=== PATIENT | male | born 1945 | race Caucasian/White ===

== ENCOUNTER 2019-09-26 01:12 | Inpatient (IN) | payer MEDICARE, OTHER ==
[2019-09-26] MEDS ORDERED: ONDANSETRON 4 MG/2 ML VIAL IVP STA (01:42)
[2019-09-26] MEDS ORDERED: SODIUM CHLORIDE 0.9% 1,000 ML IV STA (01:42)
[2019-09-26] MEDS ORDERED: PANTOPRAZOLE 40 MG/10 ML VIAL IVP STA (01:42)
[2019-09-26] MEDS ORDERED: KETOROLAC 30 MG/ML 1 ML VIAL IVP STA (01:43)
--- NOTE | 2019-09-26 01:47 | ED ---
Abdominal Pain HPI - General Source: patient, family Mode of arrival: ambulatory Limitations: no limitations <Baltazar Mai - Last Filed: 09/26/19 03:24> <Jonn Shannon - Last Filed: 10/04/19 06:44> - General Chief Complaint: Abdominal Pain Stated Complaint: Abdominal pain Time Seen by Provider: 09/26/19 01:27 - History of Present Illness Initial Comments: Patient is 73-year-old male presenting to emergency Department with a chief complaint of abdominal pain. She reports a gradual onset of right lower rustam drant abdominal pain since yesterday. States the pain is constant and comes and goes in waves. States it is dull in nature. Also reports on-and-off nausea but denies any vomiting. States she has regular bowel movements without diarrhea. Denies any night sweats fevers or chills. Denies any particular alleviating or aggravating factors. States pain is not related to by mouth intake. Does rep ort obstructive urinary symptoms but states that is due to his enlarged prostate. Denies any urgency frequency or dysuria. Denies hematuria, hematochezia or melena. Denies any testicular swelling or tenderness. (Baltazar Mai) - Related Data Allergies Allergy/AdvReac Type Severity Reaction Status Date / Time morphine Allergy Itching Verified 09/26/19 11:24 Review of Systems ROS Other: All systems not noted in ROS Statement are negative. <Baltazar Mai - Last Filed: 09/26/19 03:24> ROS Other: All systems not noted in ROS Statement are negative. <Jonn Shannon - Last Filed: 10/04/19 06:44> ROS Statement: Those systems with pertinent positive or pertinent negative responses have been documented in the HPI. Past Medical History Additional Past Medical History / Comment(s): [place] History of Any Multi-Drug Resistant Organisms: None Reported Past Surgical History: Heart Catheterization Additional Past Surgical History / Comment(s): heart cath 1992 Past Psychological History: No Psychological Hx Reported Smoking Status: Never smoker Past Alcohol Use History: Daily Past Drug Use History: None Reported <Baltazar Mai - Last Filed: 09/26/19 03:24> General Exam Limitations: no limitations General appearance: alert, in no apparent distress Head exam: Present: atraumatic, normocephalic, normal inspection Eye exam: Present: normal appearance, PERRL, EOMI Pupils: Present: normal accommodation ENT exam: Present: normal exam, normal oropharynx, mucous membranes moist, TM's normal bilaterally, normal external ear exam Neck exam: Present: normal inspection, full ROM Respiratory exam: Present: normal lung sounds bilaterally. Absent: respiratory distress, wheezes Cardiovascular Exam: Present: regular rate, normal rhythm, normal heart sounds GI/Abdominal exam: Present: soft, tenderness (Positive McBurney point tenderness. Negative Rovsing, obturator or psoas.), normal bowel sounds. Absent: distended, guarding, rebound, rigid, bruit, pulsatile mass, hernia Extremities exam: Present: normal inspection, full ROM Back exam: Present: normal inspection, full ROM Neurological exam: Present: alert, oriented X3, normal gait Psychiatric exam: Present: normal affect, normal mood Skin exam: Present: warm, dry, intact, normal color <Baltazar Mai - Last Filed: 09/26/19 03:24> Course Vital Signs 09/26/19 01:17 Temperature 99 F Pulse Rate 70 Respiratory 18 Rate Blood Pressure 162/84 O2 Sat by Pulse 96 Oximetry Medical Decision Making - Lab Data Result diagrams: 09/26/19 01:43 09/26/19 01:43 <Baltazar Mai - Last Filed: 09/26/19 03:24> - Lab Data Result diagrams: 09/30/19 06:16 09/30/19 06:16 <Jonn Shannon - Last Filed: 10/04/19 06:44> - Medical Decision Making Patient is 73-year-old male presenting to emergency Department with chief complaint of abdominal pain. Physical examination patient is appears to have positive McBurney point tenderness. Nausea but no vomiting. Symptomatic since yesterday. Patient has leukocytosis. CT of abdomen and pelvis shows right lower quadrant inflammatory changes with some fat stranding. His system with appendicitis with possible rupture. Patient given fluids, antiemetics. EKG shows normal sinus rhythm with no acute ST changes. Patient will be started on vancomycin and Zosyn. Blood cultures pending. Case discussed with . Patient will be admitted. also examined the patient and is in agreement with the treatment plan. (Baltazar Mai) I saw this patient in conjunction with the physician life enrichment assistant. I performed independent history and physical exam. Agree with case management. (Jonn Shannon) - Lab Data Lab Results 09/26/19 09/26/19 09/26/19 Range/Units 01:43 01:43 01:43 WBC 12.8 H (3.8-10.6) k/uL RBC 5.01 (4.30-5.90) m/uL Hgb 15.6 (13.0-17.5) gm/dL Hct 45.6 (39.0-53.0) % MCV 91.1 (80.0-100.0) fL MCH 31.1 (25.0-35.0) pg MCHC 34.1 (31.0-37.0) g/dL RDW 12.4 (11.5-15.5) % Plt Count 182 (150-450) k/uL Neutrophils % 87 % Lymphocytes % 5 % Monocytes % 7 % Eosinophils % 1 % Basophils % 0 % Neutrophils # 11.1 H (1.3-7.7) k/uL Lymphocytes # 0.6 L (1.0-4.8) k/uL Monocytes # 0.8 (0-1.0) k/uL Eosinophils # 0.1 (0-0.7) k/uL Basophils # 0.0 (0-0.2) k/uL PT (9.0-12.0) sec INR (<1.2) APTT (22.0-30.0) sec Sodium 131 L (137-145) mmol/L Potassium 3.8 (3.5-5.1) mmol/L Chloride 98 (98-107) mmol/L Carbon Dioxide 24 (22-30) mmol/L Anion Gap 9 mmol/L BUN 12 (9-20) mg/dL Creatinine 0.87 (0.66-1.25) mg/dL Est GFR (CKD-EPI)AfAm >90 (>60 ml/min/1.73 sqM) Est GFR (CKD-EPI)NonAf 86 (>60 ml/min/1.73 sqM) Glucose 133 H (74-99) mg/dL Plasma Lactic Acid Loki 1.1 (0.7-2.0) mmol/L Calcium 9.0 (8.4-10.2) mg/dL Total Bilirubin 1.9 H (0.2-1.3) mg/dL AST 21 (17-59) U/L ALT 19 (4-49) U/L Alkaline Phosphatase 70 (38-126) U/L Total Protein 6.7 (6.3-8.2) g/dL Albumin 4.2 (3.5-5.0) g/dL Lipase 31 (23-300) U/L Urine Color Urine Appearance (Clear) Urine pH (5.0-8.0) Ur Specific [place] (1.001-1.035) Urine Protein (Negative) Urine Glucose (UA) (Negative) Urine Ketones (Negative) Urine Blood (Negative) Urine Nitrite (Negative) Urine Bilirubin (Negative) Urine Urobilinogen (<2.0) mg/dL Ur Leukocyte Esterase (Negative) Urine RBC (0-5) /hpf Urine WBC (0-5) /hpf Hyaline Casts (0-2) /lpf Urine Mucus (None) /hpf Blood Type Blood Type Confirm Blood Type Recheck Bld Type Recheck Status Antibody Screen Spec Expiration Date 09/26/19 09/26/19 09/26/19 Range/Units 01:43 02:02 03:00 WBC (3.8-10.6) k/uL RBC (4.30-5.90) m/uL Hgb (13.0-17.5) gm/dL Hct (39.0-53.0) % MCV (80.0-100.0) fL MCH (25.0-35.0) pg MCHC (31.0-37.0) g/dL RDW (11.5-15.5) % Plt Count (150-450) k/uL Neutrophils % % Lymphocytes % % Monocytes % % Eosinophils % % Basophils % % Neutrophils # (1.3-7.7) k/uL Lymphocytes # (1.0-4.8) k/uL Monocytes # (0-1.0) k/uL Eosinophils # (0-0.7) k/uL Basophils # (0-0.2) k/uL PT 10.3 (9.0-12.0) sec INR 1.0 (<1.2) APTT 23.5 (22.0-30.0) sec Sodium (137-145) mmol/L Potassium (3.5-5.1) mmol/L Chloride (98-107) mmol/L Carbon Dioxide (22-30) mmol/L Anion Gap mmol/L BUN (9-20) mg/dL Creatinine (0.66-1.25) mg/dL Est GFR (CKD-EPI)AfAm (>60 ml/min/1.73 sqM) Est GFR (CKD-EPI)NonAf (>60 ml/min/1.73 sqM) Glucose (74-99) mg/dL Plasma Lactic Acid Loki (0.7-2.0) mmol/L Calcium (8.4-10.2) mg/dL Total Bilirubin (0.2-1.3) mg/dL AST (17-59) U/L ALT (4-49) U/L Alkaline Phosphatase (38-126) U/L Total Protein (6.3-8.2) g/dL Albumin (3.5-5.0) g/dL Lipase (23-300) U/L Urine Color Yellow Urine Appearance Clear (Clear) Urine pH 5.5 (5.0-8.0) Ur Specific [place] 1.020 (1.001-1.035) Urine Protein Negative (Negative) Urine Glucose (UA) Negative (Negative) Urine Ketones 1+ H (Negative) Urine Blood Small H (Negative) Urine Nitrite Negative (Negative) Urine Bilirubin Negative (Negative) Urine Urobilinogen <2.0 (<2.0) mg/dL Ur Leukocyte Esterase Negative (Negative) Urine RBC 8 H (0-5) /hpf Urine WBC 5 (0-5) /hpf Hyaline Casts 1 (0-2) /lpf Urine Mucus Few H (None) /hpf Blood Type A Negative Blood Type Confirm Blood Type Recheck No Previous Record Bld Type Recheck Status CABO Indicated Antibody Screen NEGATIVE Spec Expiration Date 09/29/2019 - 229909/26/19 Range/Units 03:07 WBC (3.8-10.6) k/uL RBC (4.30-5.90) m/uL Hgb (13.0-17.5) gm/dL Hct (39.0-53.0) % MCV (80.0-100.0) fL MCH (25.0-35.0) pg MCHC (31.0-37.0) g/dL RDW (11.5-15.5) % Plt Count (150-450) k/uL Neutrophils % % Lymphocytes % % Monocytes % % Eosinophils % % Basophils % % Neutrophils # (1.3-7.7) k/uL Lymphocytes # (1.0-4.8) k/uL Monocytes # (0-1.0) k/uL Eosinophils # (0-0.7) k/uL Basophils # (0-0.2) k/uL PT (9.0-12.0) sec INR (<1.2) APTT (22.0-30.0) sec Sodium (137-145) mmol/L Potassium (3.5-5.1) mmol/L Chloride (98-107) mmol/L Carbon Dioxide (22-30) mmol/L Anion Gap mmol/L BUN (9-20) mg/dL Creatinine (0.66-1.25) mg/dL Est GFR (CKD-EPI)AfAm (>60 ml/min/1.73 sqM) Est GFR (CKD-EPI)NonAf (>60 ml/min/1.73 sqM) Glucose (74-99) mg/dL Plasma Lactic Acid Loki (0.7-2.0) mmol/L Calcium (8.4-10.2) mg/dL Total Bilirubin (0.2-1.3) mg/dL AST (17-59) U/L ALT (4-49) U/L Alkaline Phosphatase (38-126) U/L Total Protein (6.3-8.2) g/dL Albumin (3.5-5.0) g/dL Lipase (23-300) U/L Urine Color Urine Appearance (Clear) Urine pH (5.0-8.0) Ur Specific [place] (1.001-1.035) Urine Protein (Negative) Urine Glucose (UA) (Negative) Urine Ketones (Negative) Urine Blood (Negative) Urine Nitrite (Negative) Urine Bilirubin (Negative) Urine Urobilinogen (<2.0) mg/dL Ur Leukocyte Esterase (Negative) Urine RBC (0-5) /hpf Urine WBC (0-5) /hpf Hyaline Casts (0-2) /lpf Urine Mucus (None) /hpf Blood Type Blood Type Confirm A Negative Blood Type Recheck Bld Type Recheck Status Antibody Screen Spec Expiration Date - EKG Data EKG Comments: Sinus rhythm, no acute ST changes. Ventricular rate 64, VT 170, QRS 96, QTC 414. (Baltazar Mai) Disposition Is patient prescribed a controlled substance at d/c from ED?: No Time of Disposition: 02:52 <Baltazar Mai - Last Filed: 09/26/19 03:24> <Jonn Shannon - Last Filed: 10/04/19 06:44> Clinical Impression: Abdominal pain, Appendicitis, acute Disposition: ADMITTED IP TO THIS HOSP Condition: Good
[2019-09-26 02:07] LABS: Basophils % (A) 0 %; Eosinophils # (A) 0.1 k/uL (0-0.7); Eosinophils % (A) 1 %; HCT 45.6 % (39.0-53.0); HGB 15.6 gm/dL (13.0-17.5); Lymphocytes # (A) 0.6 k/uL (1.0-4.8); Lymphocytes % (A) 5 %; MCH 31.1 pg (25.0-35.0); MCHC 34.1 g/dL (31.0-37.0); MCV 91.1 fL (80.0-100.0); Mean Platelet Volume 6.9; Monocytes # (A) 0.8 k/uL (0-1.0); Monocytes % (A) 7 %; Neutrophils # (A) 11.1 k/uL (1.3-7.7); Neutrophils % (A) 87 %; Platelet Count 182 k/uL (150-450); RBC 5.01 m/uL (4.30-5.90); RDW 12.4 % (11.5-15.5); WBC 12.8 k/uL (3.8-10.6)
[2019-09-26 02:08] LABS: ALT 19 U/L (4-49); AST 21 U/L (17-59); African American GFR (CKD) >90 (>60 ml/min/1.73 sqM); Albumin 4.2 g/dL (3.5-5.0); Alkaline Phosphatase 70 U/L (38-126); Anion Gap 9 mmol/L; Blood Urea Nitrogen 12 mg/dL (9-20); Carbon Dioxide 24 mmol/L (22-30); Chloride 98 mmol/L (98-107); Glucose 133 mg/dL (74-99); Non-African American GFR(CKD) 86 (>60 ml/min/1.73 sqM); Potassium 3.8 mmol/L (3.5-5.1); Sodium 131 mmol/L (137-145); Total Bilirubin 1.9 mg/dL (0.2-1.3); Total Protein 6.7 g/dL (6.3-8.2)
[2019-09-26 02:26] LABS: Appearance,Urine Clear (Clear); Bilirubin,Urine Negative (Negative); Blood,Urine Small (Negative); Color,Urine Yellow; Glucose,Urine (UA) Negative (Negative); Hyaline Casts,Urine 1 /lpf (0-2); Ketones,Urine 1+ (Negative); Leukocyte Esterase,Urine Negative (Negative); Mucus,Urine Few /hpf; Nitrite,Urine Negative (Negative); PH, Urine 5.5 (5.0-8.0); Protein,Urine Negative (Negative); RBC,Urine 8 /hpf (0-5); Urobilinogen,Urine <2.0 mg/dL (<2.0); WBC,Urine 5 /hpf (0-5)
--- NOTE | 2019-09-26 02:39 | CT ---
EXAMINATION TYPE: CT abdomen pelvis w con DATE OF EXAM: 09/26/2019 COMPARISON: None HISTORY: RLQ pain CT DLP: 1036.3 mGycm Automated exposure control for dose reduction was used. CONTRAST: Performed with IV Contrast, patient injected with 100 mL of Isovue 300. Lung bases are clear. There is no pleural effusion. There is no pericardial effusion. Heart size is n ormal. Liver spleen stomach pancreas gallbladder appear normal. Bile ducts are not dilated. There is no adrenal mass. Kidneys show satisfactory contrast opacification. There is no hydronephrosi s. Delayed images show normal renal excretion. Bladder distends smoothly. There is no inguinal hernia . There is no free fluid in the pelvis. There are multiple sigmoid diverticula. There is fat stranding in the right lower quadrant with apparent markedly thickened appendix with arturo rounding fluid. Appendix measures up to 1.7 cm. There is no evidence of free air. There is probably small appendicolith. Lumbar vertebra have normal alignment. Disc spaces are fairly normal. There is no compression fractur e. Bony pelvis is intact. There is a mild relative spinal stenosis at L3-4. There is no evidence of a bowel obstruction. IMPRESSION: Inflammatory changes in the right lower quadrant with fat stranding and fluid and markedly thickened appendix consistent with appendicitis and possible rupture.
[2019-09-26] MEDS ORDERED: PIPERACILLIN-TAZOBACTAM 3.375 GM in SODIUM CHLORIDE 0.9% 100 ML IVPB STA (02:42)
[2019-09-26] MEDS ORDERED: VANCOMYCIN IV PER PHARMACY 1 EACH MISC MISCELLANE PRN (02:42)
[2019-09-26] MEDS ORDERED: VANCOMYCIN 1,500 MG in SODIUM CHLORIDE 0.9% 250 ML IVPB STA (02:47)
[2019-09-26] MEDS ORDERED: HYDROmorphone 0.5 MG/0.5 ML SYRINGE IVP STA (02:57)
[2019-09-26 03:17] LABS: Partial Thromboplastin Time 23.5 sec (22.0-30.0); Prothrombin Time 10.3 sec (9.0-12.0)
[2019-09-26] MEDS ORDERED: ACETAMINOPHEN TAB 325 MG TAB PO PRN (03:20)
[2019-09-26] MEDS ORDERED: NALOXONE 0.4 MG/ML 1 ML VIAL IV PRN ×2 (03:20→08:44)
[2019-09-26] MEDS: SODIUM CHLORIDE 0.9% 1,000 ML IV SCH ×2 (03:49→16:54)
[2019-09-26] MEDS ORDERED: SODIUM CHLORIDE 0.9% 1,000 ML IV ONE (07:32)
[2019-09-26] MEDS ORDERED: HEPARIN SODIUM,PORCINE 5,000 UNIT/ML 1 ML VIAL SQ ONE (07:44)
[2019-09-26] MEDS ORDERED: fentaNYL (PF) 50 MCG/ML 2 ML AMP ONE (07:45)
[2019-09-26] MEDS ORDERED: NEOSTIGMINE 1 MG/ML 10 ML VIAL ONE (07:45)
[2019-09-26] MEDS ORDERED: SUCCINYLCHOLINE CHLORIDE 100 MG/5 ML SYR IV ONE (07:45)
[2019-09-26] MEDS ORDERED: PROPOFOL 10 MG/ML 20 ML VIAL IV ONE (07:45)
[2019-09-26] MEDS ORDERED: MIDAZOLAM 2 MG/2 ML VIAL ONE (07:45)
[2019-09-26] MEDS ORDERED: ePHEDrine SULFATE/0.9% NACL/PF 50 MG/5 ML SYRINGE IV ONE (07:45)
[2019-09-26] MEDS ORDERED: LIDOCAINE 1% INJ 10MG/ML (20 ML MDV) ONE (07:45)
[2019-09-26] MEDS ORDERED: ROCURONIUM BROMIDE 10 MG/ML 5 ML VIAL IV ONE (07:45)
[2019-09-26] MEDS ORDERED: GLYCOPYRROLATE 0.2 MG/ML 2 ML VIAL ONE (07:45)
[2019-09-26] MEDS ORDERED: BUPIVACAIN-EPI 0.25%-1:200,000 30 ML VIAL SQ ONE (07:50)
--- NOTE | 2019-09-26 08:43 | P.OP ---
Date of Procedure: 09/26/19 Preoperative Diagnosis: Acute appendicitis Postoperative Diagnosis: Acute appendicitis with necrosis Procedure(s) Performed: Laparoscopic appendectomy Anesthesia: YOLANDA Surgeon: Ken Holbrook Estimated Blood Loss (ml): 5 Pathology: other (Appendix) Condition: stable Disposition: PACU Description of Procedure: The patient's placed on the operating table in the supine position. The patient received general anesthesia. The abdomen was prepped and draped in the usual sterile fashion. The skin was anesthetized 1% local Xylocaine at the trocar sites. Using an 11 blade the skin was incised at the umbilicus. The umbilicus was grasped with a [place] clamp and then a Veress needle was placed into the peritoneal cavity. Position of the Veress needle was confirmed with positive drop test. After adequate insufflation a 5 mm trocar was placed into the peritoneal cavity. The abdomen was further insufflated. And then the laparoscope was placed in the peritoneal cavity. Next a 5 mm trocar was placed in the midline suprapubic position. And then a 10 mm trocar was placed in the midline epigastric position. The patient was rotated with the right side up and in Trendelenburg. The appendix was visualized. The appendix appeared to be inflamed. There was evidence of necrosis of the appendix. The appendix was grasped and then using the Harmonic scissors the mesoappendix was divided. A PDS Endoloop was then placed around the base of the appendix. And then the appendix was divided using Harmonic scissors. The appendix was placed into an Endo Catch and brought out through the 10 mm trocar site. The abdomen was irrigated. There is no bleeding seen. The trochars withdrawn. The skin was closed interrupted 3-0 Monocryl suture. Dermabond dressing was applied. Patient was sent to recovery room in stable condition.
--- NOTE | 2019-09-26 08:44 | P.GSHP ---
History of Present Illness H&P Date: 09/26/19 Chief Complaint: Right lower quadrant pain This is a 73-year-old male who has a four-day history of right lower quadrant pain. Patient admitted through the emergency room found have evidence of appendicitis. Past Medical History Past Medical History: Hyperlipidemia, Hypertension, Myocardial Infarction ([place]), Osteoarthritis (OA), Prostate Disorder Additional Past Medical History / Comment(s): [place] Last Myocardial Infarction Date:: History of Any Multi-Drug Resistant Organisms: None Reported Past Surgical History: Adenoidectomy, Heart Catheterization, Orthopedic Surgery, Tonsillectomy Additional Past Surgical History / Comment(s): heart cath 1991; carpal tunnel surgery; vasectomy Past Anesthesia/Blood Transfusion Reactions: No Reported Reaction Past Psychological History: No Psychological Hx Reported Smoking Status: Never smoker Past Alcohol Use History: Daily Past Drug Use History: None Reported Medications and Allergies Home Medications Medication Instructions Recorded Confirmed Type Losartan [Cozaar] 25 mg PO DAILY 09/26/19 09/26/19 History Allergies Allergy/AdvReac Type Severity Reaction Status Date / Time morphine Allergy Itching Verified 09/26/19 01:25 Surgical - Exam Vital Signs Temp Pulse Resp BP Pulse Ox 99 F 70 18 162/84 96 09/26/19 01:17 09/26/19 01:17 09/26/19 01:17 09/26/19 01:17 09/26/19 01:17 - General well developed, well nourished, moderate distress - Eyes PERRL - ENT normal pinna - Neck no masses - Respiratory normal expansion - Cardiovascular Rhythm: regular - Abdomen Right lower quadrant pain Abdomen: soft Results - Labs 09/26/19 01:43 09/26/19 01:43 Abnormal Lab Results - Last 24 Hours (Table) 09/26/19 09/26/19 09/26/19 Range/Units 01:43 01:43 02:02 WBC 12.8 H (3.8-10.6) k/uL Neutrophils # 11.1 H (1.3-7.7) k/uL Lymphocytes # 0.6 L (1.0-4.8) k/uL Sodium 131 L (137-145) mmol/L Glucose 133 H (74-99) mg/dL Total Bilirubin 1.9 H (0.2-1.3) mg/dL Urine Ketones 1+ H (Negative) Urine Blood Small H (Negative) Urine RBC 8 H (0-5) /hpf Urine Mucus Few H (None) /hpf Diabetes panel 09/26/19 Range/Units 01:43 Sodium 131 L (137-145) mmol/L Potassium 3.8 (3.5-5.1) mmol/L Chloride 98 (98-107) mmol/L Carbon Dioxide 24 (22-30) mmol/L BUN 12 (9-20) mg/dL Creatinine 0.87 (0.66-1.25) mg/dL Glucose 133 H (74-99) mg/dL Calcium 9.0 (8.4-10.2) mg/dL AST 21 (17-59) U/L ALT 19 (4-49) U/L Alkaline Phosphatase 70 (38-126) U/L Total Protein 6.7 (6.3-8.2) g/dL Albumin 4.2 (3.5-5.0) g/dL Calcium panel 09/26/19 Range/Units 01:43 Calcium 9.0 (8.4-10.2) mg/dL Albumin 4.2 (3.5-5.0) g/dL Pituitary panel 09/26/19 Range/Units 01:43 Sodium 131 L (137-145) mmol/L Potassium 3.8 (3.5-5.1) mmol/L Chloride 98 (98-107) mmol/L Carbon Dioxide 24 (22-30) mmol/L BUN 12 (9-20) mg/dL Creatinine 0.87 (0.66-1.25) mg/dL Glucose 133 H (74-99) mg/dL Calcium 9.0 (8.4-10.2) mg/dL Adrenal panel 09/26/19 Range/Units 01:43 Sodium 131 L (137-145) mmol/L Potassium 3.8 (3.5-5.1) mmol/L Chloride 98 (98-107) mmol/L Carbon Dioxide 24 (22-30) mmol/L BUN 12 (9-20) mg/dL Creatinine 0.87 (0.66-1.25) mg/dL Glucose 133 H (74-99) mg/dL Calcium 9.0 (8.4-10.2) mg/dL Total Bilirubin 1.9 H (0.2-1.3) mg/dL AST 21 (17-59) U/L ALT 19 (4-49) U/L Alkaline Phosphatase 70 (38-126) U/L Total Protein 6.7 (6.3-8.2) g/dL Albumin 4.2 (3.5-5.0) g/dL Assessment and Plan Assessment: Acute appendicitis. Patient undergo laparoscopic appendectomy
[2019-09-26] MEDS ORDERED: LACTATED RINGERS 1,000 ML IV ONE (09:01)
[2019-09-26] MEDS: HYDROcodone/APAP 5-325MG 1 EACH TAB PO PRN (09:41)
--- NOTE | 2019-09-26 11:44 | P.CONS ---
History of Present Illness - History of Present Illness Patient is a pleasant 73-year-old gentleman came in with compensative severe r ight lower quadrant abdominal pain along with nausea vomiting which started couple days ago nighttime much worse yesterday because of which patient came to ER found to have appendicitis underwent surgery found to have ruptured appendix with peritonitis. Patient had a fever last night patient was started on broad- spectrum antibiotics vancomycin and Zosyn and infectious disease was consulted patient is receiving IV fluids patient pain significant improved today patient is feeling much better today patient had multiple episodes of nausea vomiting. Review of Systems REVIEW OF SYSTEMS: CONSTITUTIONAL: no malaise, no fatigue. HEENT: No recent visual problems or hearing problems. Denied any sore throat. CARDIOVASCULAR: No chest pain, orthopnea, PND, no palpitations, no syncope. PULMONARY: No shortness of breath, no cough, no hemoptysis. GASTROINTESTINAL: As mentioned in HPI NEUROLOGICAL: No headaches, no weakness, no numbness. HEMATOLOGICAL: Denies any bleeding or petechiae. GENITOURINARY: Denies any burning micturition, frequency, or urgency. MUSCULOSKELETAL/RHEUMATOLOGICAL: Denies any joint pain, swelling, or any muscle pain. ENDOCRINE: Denies any polyuria or polydipsia. The rest of the 14-point review of systems is negative. Past Medical History Past Medical History: Hyperlipidemia, Hypertension, Myocardial Infarction ([place]), Osteoarthritis ([place]), Prostate Disorder Additional Past Medical History / Comment(s): [place] Last Myocardial Infarction Date:: History of Any Multi-Drug Resistant Organisms: None Reported Past Surgical History: Adenoidectomy, Heart Catheterization, Orthopedic Surgery, Tonsillectomy Additional Past Surgical History / Comment(s): heart cath 1991; carpal tunnel surgery; vasectomy Past Anesthesia/Blood Transfusion Reactions: No Reported Reaction Past Psychological History: No Psychological Hx Reported Smoking Status: Never smoker Past Alcohol Use History: Daily Past Drug Use History: None Reported Medications and Allergies Home Medications Medication Instructions Recorded Confirmed Type Aspirin EC [Ecotrin Low Dose] 81 mg PO DAILY 09/26/19 09/26/19 History Calcium Carbonate [Calcium] 600 mg PO Q48H 09/26/19 09/26/19 History Losartan [Cozaar] 25 mg PO DAILY 09/26/19 09/26/19 History Magnesium 200 mg PO Q48H 09/26/19 09/26/19 History [place]-3 Fatty Acids/Fish Oil [Fish 1 cap PO DAILY 09/26/19 09/26/19 History Oil 1,000 mg Softgel] Potassium Gluconate 99 mg PO Q48H 09/26/19 09/26/19 History Serrapeptase 1 tab PO DAILY 09/26/19 09/26/19 History Ubidecarenone [Co Q-10] 100 mg PO DAILY 09/26/19 09/26/19 History Vitamin E 400 unit PO DAILY 09/26/19 09/26/19 History Zinc 50 mg PO DAILY PRN 09/26/19 09/26/19 History Allergies Allergy/AdvReac Type Severity Reaction Status Date / Time morphine Allergy Itching Verified 09/26/19 11:24 Physical Exam Vitals: Vital Signs Temp Pulse Pulse Pulse Pulse Resp BP 09/26/19 10:20 84 09/26/19 10:05 85 09/26/19 09:50 85 09/26/19 09:35 100.0 F H 79 17 09/26/19 09:13 79 16 09/26/19 08:57 85 16 09/26/19 08:42 99.2 F 95 16 09/26/19 07:39 99.8 F H 87 16 09/26/19 05:32 99.1 F 65 18 09/26/19 01:17 99 F 70 18 162/84 BP Pulse Ox 09/26/19 10:20 115/65 09/26/19 10:05 106/68 09/26/19 09:50 113/61 09/26/19 09:35 112/65 95 09/26/19 09:13 126/67 97 09/26/19 08:57 143/71 100 09/26/19 08:42 142/68 99 09/26/19 07:39 139/66 95 09/26/19 05:32 146/75 98 09/26/19 01:17 96 Intake and Output 09/25/19 09/26/19 09/26/19 22:59 06:59 14:59 Intake Total 325 1000 Output Total 5 Balance 325 995 Intake: IV 1000 Intake, IV Titration 325 Amount Sodium Chloride 0.9% 1, 75 000 ml @ 75 mls/hr IV . [id number] [facility] Rx#:[id number] Vancomycin 1,500 mg In 250 Sodium Chloride 0.9% 250 ml @ 125 mls/hr IVPB Q12H [facility] Rx#:[id number] Output: Estimated Blood Loss 5 Other: Voiding Method Toilet Weight 88.5 kg PHYSICAL EXAMINATION: GENERAL: The patient is alert and oriented x3, not in any acute distress. Well developed, well nourished. HEENT: Pupils are round and equally reacting to light. EOMI. No scleral icterus. No conjunctival pallor. Normocephalic, atraumatic. No pharyngeal erythema. No thyromegaly. CARDIOVASCULAR: S1 and S2 present. No murmurs, rubs, or gallops. PULMONARY: Chest is clear to auscultation, no wheezing or crackles. ABDOMEN: Soft, minimal tenderness in the surgical site area surgical site area appears to be clean bowel sounds are fairly good MUSCULOSKELETAL: No joint swelling or deformity. EXTREMITIES: No cyanosis, clubbing, or pedal edema. NEUROLOGICAL: Gross neurological examination did not reveal any focal deficits. SKIN: No rashes. Results CBC & Chem 7: 09/26/19 01:43 09/26/19 01:43 Labs: Abnormal Lab Results - Last 24 Hours (Table) 09/26/19 09/26/19 09/26/19 Range/Units 01:43 01:43 02:02 WBC 12.8 H (3.8-10.6) k/uL Neutrophils # 11.1 H (1.3-7.7) k/uL Lymphocytes # 0.6 L (1.0-4.8) k/uL Sodium 131 L (137-145) mmol/L Glucose 133 H (74-99) mg/dL Total Bilirubin 1.9 H (0.2-1.3) mg/dL Urine Ketones 1+ H (Negative) Urine Blood Small H (Negative) Urine RBC 8 H (0-5) /hpf Urine Mucus Few H (None) /hpf Assessment and Plan Plan: -Acute appendicitis, status post surgery patient had ruptured appendix leading to peritonitis patient is on broad-spectrum antibiotics which will be continued -Sepsis secondary to appendicitis -Hypervolemic hyponatremia expected to improve with IV normal saline which will be continued will increase normal saline 100 mL/h -Hyperlipidemia -Hypertension -Coronary artery disease -Benign prostatic hypertrophy For above-mentioned chronic medical problems patient will be resumed on appropriate home medications
[2019-09-26] MEDS: HYDROmorphone 0.5 MG/0.5 ML SYRINGE IVP PRN ×4 (12:56→23:05)
[2019-09-26] MEDS: AMPICILLIN-SULBACTAM 3 GM in SODIUM CHLORIDE 0.9% 100 ML IVPB SCH ×3 (12:57→23:06)
[2019-09-26] MEDS ORDERED: VANCOMYCIN 1,500 MG in SODIUM CHLORIDE 0.9% 250 ML IVPB SCH (16:00)
[2019-09-27] MEDS: HYDROcodone/APAP 5-325MG 1 EACH TAB PO PRN ×2 (02:53→08:52)
[2019-09-27] MEDS: AMPICILLIN-SULBACTAM 3 GM in SODIUM CHLORIDE 0.9% 100 ML IVPB SCH ×3 (05:56→20:34)
--- NOTE | 2019-09-27 06:51 | CONS ---
CONSULTATION DATE OF SERVICE: 09/26/2019 REASON FOR CONSULTATION: Gangrenous appendicitis. HISTORY OF PRESENT ILLNESS: The patient is a 73-year-old male who presented to the ER early this morning after midnight with a chief complaint of abdominal pain. The patient mentioned his abdominal pain has been going on since Wednesday, however, over the 24 hours the pain was getting more worse and has been constant. The patient describes the pain to be in the right lower quadrant area and is currently sharp at times and dull aching about 5 to 6/10 and no radiation. The patient has felt nauseated, but no vomiting and denies having any diarrhea. With these symptoms, the patient was evaluated by the ER physician. On arrival to the ER, the patient was afebrile. Subsequently did spike a fever of 100 degrees Fahrenheit. The patient did have elevated white count of 12.8. UA was negative. The patient did have a CT of abdomen and pelvis that has been suggestive of inflammatory changes in the right lower quadrant with fat stranding markedly thickened appendix consistent with appendicitis with possible rupture. The patient was taken to the OR early this morning by Surgery. The patient is status post laparoscopic appendectomy with evidence of acute appendicitis with necrosis. The patient did receive a dose of Zosyn in the ER and that was continued with vancomycin. Infectious Disease was consulted for further recommendations regarding antibiotic therapy. REVIEW OF SYSTEMS: Positive points have been mentioned in HPI. Rest of systems are negative. PAST MEDICAL HISTORY: Hypertension, hyperlipidemia, ND, osteoarthritis, prostate disorder. PAST SURGICAL HISTORY: Adenoidectomy, heart catheterization, tonsillectomy, carpal tunnel release, vasectomy. SOCIAL HISTORY: The patient smokes . Denies drinking or drug use. FAMILY HISTORY: No pertinent findings noticed. ALLERGIES: MORPHINE. MEDICATIONS: Medications include the patient is currently on Tylenol, [place], Lovenox, Dilaudid, Narcan, and vancomycin and Zosyn doses in the ER. PHYSICAL EXAMINATION: On examination, blood pressure 103/63 with a pulse of 72, temperature 98.2. He is 96% on room air. General description is an elderly male lying in bed in no distress. No tachypnea or accessory muscle of respiration use. HEENT: Examination shows no pallor or scleral icterus. Oral mucous membrane is dry. No pharyngeal erythema or thrush. NECK: Trachea central. No thyromegaly. LUNGS: Unlabored breathing, clear to auscultation anteriorly. HEART: S1, S2. Regular rate and rhythm. ABDOMEN: Soft, mildly tender. No guarding or rigidity. EXTREMITIES: No edema of the feet. LABS: Hemoglobin is 15.6, white count of 12.8, BUN of 12, creatinine 0.87. CT report mentioned above. DIAGNOSTIC IMPRESSION AND PLAN: Patient admitted to the hospital with sepsis in this patient did have a fever of 100 degrees Fahrenheit. The patient did have an elevated white count source is acute gangrenous appendicitis, status post laparoscopic appendectomy. Will need to cover for enteric gram-negative both aerobes and anaerobes in this patient who had no recent history of any antibiotic exposure will be a sensitive pathogen. PLAN: 1. Discontinue the vancomycin. 2. Unasyn 3 grams q.6 hours. 3. We will follow on clinical condition and culture to further adjust medication if needed. Thank you for this consultation. Will follow this patient along with you. MMODL / IJN: [id number] /
[2019-09-27 07:47] LABS: Basophils % (A) 0 %; Eosinophils % (A) 0 %; HCT 33.4 % (39.0-53.0); Lymphocytes # (A) 0.9 k/uL (1.0-4.8); Lymphocytes % (A) 9 %; MCH 31.5 pg (25.0-35.0); MCHC 34.4 g/dL (31.0-37.0); MCV 91.8 fL (80.0-100.0); Mean Platelet Volume 7.2; Monocytes # (A) 0.5 k/uL (0-1.0); Monocytes % (A) 5 %; Neutrophils % (A) 84 %; Platelet Count 165 k/uL (150-450); RBC 3.63 m/uL (4.30-5.90); RDW 12.6 % (11.5-15.5); WBC 9.4 k/uL (3.8-10.6)
[2019-09-27 07:53] LABS: Albumin 2.6 g/dL (3.5-5.0); Calcium 7.5 mg/dL (8.4-10.2); Potassium 3.5 mmol/L (3.5-5.1); Total Bilirubin 1.8 mg/dL (0.2-1.3); Total Protein 4.9 g/dL (6.3-8.2)
[2019-09-27 07:54] LABS: HGB 11.5 gm/dL (13.0-17.5)
[2019-09-27] MEDS: ENOXAPARIN 40 MG/0.4 ML SYRINGE SQ SCH (08:52)
[2019-09-27] MEDS ORDERED: BISACODYL 5 MG TABLET.DR PO STA (09:44)
--- NOTE | 2019-09-27 12:21 | P.PN ---
Subjective 73-year-old pleasant male was admitted for ruptured appendix patient is status post laparotomy patient is presently on Unasyn rest of antibiotics were discontinued infectious disease is following the patient patient has significant drainage from the surgical drain. Patient did not pass gas yet that patient did not move his bowels yet patient is complaining of pain in the surgical site area. Constitutional: Denied any fatigue denied any fever. Cardio vascular: denied any chest pain, palpitations Gastrointestinal denied any nausea vomiting Pulmonary: Denied any shortness of breath cough Neurologic denied any new focal deficits All inpatient medications were reviewed and appropriate changes in these medications as dictated in the interval history and assessment and plan. Objective - Vital Signs Vital signs: Vital Signs Temp 99 F 09/27/19 11:45 Pulse 76 09/27/19 11:45 Resp 17 09/27/19 11:45 BP 118/68 09/27/19 11:45 Pulse Ox 95 09/27/19 11:45 Intake & Output 09/26/19 09/27/19 09/27/19 18:59 06:59 18:59 Intake Total 2050 400 120 Output Total 205 500 Balance 1845 400 -380 Intake: IV 1000 Intake, IV Titration 1050 400 Amount Ampicillin-Sulbactam 3 gm 100 In Sodium Chloride 0.9% 100 ml @ 200 mls/hr IVPB Q6HR [facility] Rx#:[id number] Sodium Chloride 0.9% 1, 800 300 000 ml @ 100 mls/hr IV . Q10H [facility] Rx#:[id number] Vancomycin 1,500 mg In 250 Sodium Chloride 0.9% 250 ml @ 125 mls/hr IVPB Q12H [facility] Rx#:[id number] Oral 120 Output: Drainage 200 180 Abdomen 200 180 Estimated Blood Loss 5 Other 320 Other: Voiding Method Toilet Toilet # Voids 1 - Exam PHYSICAL EXAMINATION: GENERAL: The patient is alert and oriented x3, not in any acute distress. Well developed, well nourished. HEENT: Pupils are round and equally reacting to light. EOMI. No scleral icterus. No conjunctival pallor. Normocephalic, atraumatic. No pharyngeal erythema. No thyromegaly. CARDIOVASCULAR: S1 and S2 present. No murmurs, rubs, or gallops. PULMONARY: Chest is clear to auscultation, no wheezing or crackles. ABDOMEN: Soft, minimal tenderness in the surgical site area surgical site area appears to be clean bowel sounds are fairly good, sluggish bowel sounds to be drained with significant drainage which is bloody MUSCULOSKELETAL: No joint swelling or deformity. EXTREMITIES: No cyanosis, clubbing, or pedal edema. NEUROLOGICAL: Gross neurological examination did not reveal any focal deficits. SKIN: No rashes. - Labs CBC & Chem 7: 09/27/19 06:03 09/27/19 06:03 Labs: Abnormal Lab Results - Last 24 Hours (Table) 09/27/19 09/27/19 Range/Units 06:03 06:03 RBC 3.63 L (4.30-5.90) m/uL Hgb 11.5 L D (13.0-17.5) gm/dL Hct 33.4 L (39.0-53.0) % Neutrophils # 8.0 H (1.3-7.7) k/uL Lymphocytes # 0.9 L (1.0-4.8) k/uL Sodium 127 L (137-145) mmol/L Chloride 97 L (98-107) mmol/L Calcium 7.5 L (8.4-10.2) mg/dL Total Bilirubin 1.8 H (0.2-1.3) mg/dL ALT 56 H (4-49) U/L Total Protein 4.9 L (6.3-8.2) g/dL Albumin 2.6 L (3.5-5.0) g/dL Microbiology - Last 24 Hours (Table) 09/26/19 03:07 Blood Culture - Preliminary Blood No Growth after 24 hours Assessment and Plan Plan: -Acute appendicitis, status post surgery patient had ruptured appendix leading to peritonitis patient is on Unasyn which will be continued, patient has a ISAI drain continues to have significant drainage. -Hyponatremia possibly hypovolemic hyponatremia Will repeat basic metabolic profile patient will remain in normal saline if her serum sodium doesn't improve then we will do further workup for hyponatremia at the time -Sepsis secondary to appendicitis -Hyperlipidemia -Hypertension -Coronary artery disease -Benign prostatic hypertrophy For above-mentioned chronic medical problems patient will be resumed on appropriate home medications
[2019-09-27 12:22] LABS: HCT 36.7 % (39.0-53.0); HGB 12.5 gm/dL (13.0-17.5); MCH 31.5 pg (25.0-35.0); MCHC 34.1 g/dL (31.0-37.0); MCV 92.2 fL (80.0-100.0); Platelet Count 208 k/uL (150-450); RBC 3.98 m/uL (4.30-5.90); RDW 12.7 % (11.5-15.5); WBC 11.3 k/uL (3.8-10.6)
--- NOTE | 2019-09-27 13:37 | P.PN ---
Subjective Patient is seen and examined sitting up in his chair in no acute distress. He is complaining of mild abdominal discomfort and constipation. Laboratory data reviewed, WBC 9.4, hemoglobin 11.5, sodium 127, potassium 3.5, total bilirubin 1.8, AST 49 and ALT 56. Currently maintained on Unasyn per infectious disease. 610 ml sanguinous fluid removed from ISAI drain in the previous 24 hours. GENERAL: No acute distress. Blood pressure 104/60 heart rate 74 afebrile maintaining oxygen saturation on room air. HEENT: Head is atraumatic, normocephalic. Pupils are equal, round. Sclerae anicteric. Conjunctivae are clear. Mucous membranes of the mouth are moist. Neck is supple. ABDOMEN: Firm, nontender. ISAI drain in place with, dressing clean dry and intact. Sanguinous drainage in bulb. NEUROLOGIC: Patient is awake, alert and oriented x3. ASSESSMENT Acute appendicitis with rupture, postoperative day #1 laparoscopic appendectomy PLAN Obtain repeat CBC now and in the morning. Continue clear liquid diet. Initiate stool softener. Antibiotics per ID. The above impression and plan of care have been discussed and directed by the signing physician. Britt Hoff, nurse practitioner, acting as scribe for signing physician. Objective - Vital Signs Vital signs: Vital Signs Temp 98.5 F 09/27/19 05:18 Pulse 74 09/27/19 08:25 Resp 16 09/27/19 08:25 BP 104/60 09/27/19 05:18 Pulse Ox 95 09/27/19 05:18 Intake & Output 09/26/19 09/27/19 09/27/19 18:59 06:59 18:59 Intake Total 2050 400 Output Total 205 Balance 1845 400 Intake: IV 1000 Intake, IV Titration 1050 400 Amount Ampicillin-Sulbactam 3 gm 100 In Sodium Chloride 0.9% 100 ml @ 200 mls/hr IVPB Q6HR [facility] Rx#:[id number] Sodium Chloride 0.9% 1, 800 300 000 ml @ 100 mls/hr IV . Q10H [facility] Rx#:[id number] Vancomycin 1,500 mg In 250 Sodium Chloride 0.9% 250 ml @ 125 mls/hr IVPB Q12H [facility] Rx#:[id number] Output: Drainage 200 Abdomen 200 Estimated Blood Loss 5 Other: Voiding Method Toilet Toilet # Voids 1 - Labs CBC & Chem 7: 09/27/19 12:04 09/27/19 06:03 Labs: Abnormal Lab Results - Last 24 Hours (Table) 09/27/19 09/27/19 Range/Units 06:03 06:03 RBC 3.63 L (4.30-5.90) m/uL Hgb 11.5 L D (13.0-17.5) gm/dL Hct 33.4 L (39.0-53.0) % Neutrophils # 8.0 H (1.3-7.7) k/uL Lymphocytes # 0.9 L (1.0-4.8) k/uL Sodium 127 L (137-145) mmol/L Chloride 97 L (98-107) mmol/L Calcium 7.5 L (8.4-10.2) mg/dL Total Bilirubin 1.8 H (0.2-1.3) mg/dL ALT 56 H (4-49) U/L Total Protein 4.9 L (6.3-8.2) g/dL Albumin 2.6 L (3.5-5.0) g/dL Microbiology - Last 24 Hours (Table) 09/26/19 03:07 Blood Culture - Preliminary Blood No Growth after 24 hours
[2019-09-27] MEDS: POLYETHYLENE GLYCOL 3350 17 GM POWD.PACK PO SCH (14:23)
[2019-09-27] MEDS: HYDROmorphone 1 MG/ML 1 ML SYRINGE IVP PRN ×2 (14:28→21:22)
[2019-09-27] MEDS: SODIUM CHLORIDE 0.9% 1,000 ML IV SCH ×2 (14:29→17:36)
--- NOTE | 2019-09-28 | PN ---
PROGRESS NOTE DATE OF SERVICE: 09/27/2019 REASON FOR FOLLOWUP: Acute gangrenous appendicitis. INTERVAL HISTORY: The patient is currently afebrile, has been complaining of abdominal pain this morning. He did have more output in his ISAI drain which is mostly blood-stained. Denies having any chest pain or shortness of breath or cough. Did not have any bowel movement. PHYSICAL EXAMINATION: Blood pressure is 128/63 with a pulse of 76, temperature of 99. He is 95% on room air. General description is an elderly male lying in bed in no distress. RESPIRATORY SYSTEM: Unlabored breathing. Clear to auscultation anteriorly. HEART: S1, S2. Regular rate and rhythm. ABDOMEN: Soft. No tenderness. LABS: Hemoglobin is 12.5, white count 11.3. Blood culture has been negative. DIAGNOSTIC IMPRESSION AND PLAN: Patient with acute gangrenous appendicitis, status post appendectomy. Patient is covered with Unasyn; to continue. Drainage will be monitored. Monitor clinical course closely. MMODL / IJN: [id number] /
[2019-09-28] MEDS: AMPICILLIN-SULBACTAM 3 GM in SODIUM CHLORIDE 0.9% 100 ML IVPB SCH ×4 (02:23→19:49)
[2019-09-28] MEDS: HYDROmorphone 1 MG/ML 1 ML SYRINGE IVP PRN ×2 (02:23→07:55)
[2019-09-28] MEDS: SODIUM CHLORIDE 0.9% 1,000 ML IV SCH ×2 (02:23→13:51)
[2019-09-28 06:27] LABS: HCT 34.7 % (39.0-53.0); HGB 11.9 gm/dL (13.0-17.5); MCH 31.4 pg (25.0-35.0); MCHC 34.3 g/dL (31.0-37.0); MCV 91.4 fL (80.0-100.0); Platelet Count 187 k/uL (150-450); RDW 12.6 % (11.5-15.5); WBC 9.4 k/uL (3.8-10.6)
[2019-09-28] MEDS: ENOXAPARIN 40 MG/0.4 ML SYRINGE SQ SCH (09:16)
[2019-09-28] MEDS: POLYETHYLENE GLYCOL 3350 17 GM POWD.PACK PO SCH (09:16)
[2019-09-28 09:31] LABS: African American GFR (CKD) >90 (>60 ml/min/1.73 sqM); Anion Gap 7 mmol/L; Blood Urea Nitrogen 17 mg/dL (9-20); Calcium 7.7 mg/dL (8.4-10.2); Carbon Dioxide 25 mmol/L (22-30); Chloride 97 mmol/L (98-107); Glucose 100 mg/dL (74-99); Non-African American GFR(CKD) 85 (>60 ml/min/1.73 sqM); Potassium 4.3 mmol/L (3.5-5.1); Sodium 129 mmol/L (137-145)
--- NOTE | 2019-09-28 11:34 | P.PN ---
Subjective Progress Note Date: 09/28/19 Principal diagnosis: 73-year-old pleasant male was admitted for ruptured appendix patient is status post laparotomy patient is presently on Unasyn rest of antibiotics were disconti nued infectious disease is following the patient patient has significant drainage from the surgical drain. Patient did not pass gas yet that patient did not move his bowels yet patient is complaining of pain in the surgical site area. Constitutional: Denied any fatigue denied any fever. Cardio vascular: denied any chest pain, palpitations Gastrointestinal denied any nausea vomiting Pulmonary: Denied any shortness of breath cough Neurologic denied any new focal deficits 09/28/2019 Patient is seen in follow-up today stating that he feels better than yesterday although continues to have some significant drainage noted from the ISAI drain more so with movement and position changes. States he has been up and walking around with no difficulties. Patient denies any passing of gas or bowel move ments at this time. Patient sodium today lightly improved at 129 and patient will continue on IV fluids at this time. Currently no reports of chest pain, shortness of breath, or palpitations. Patient is afebrile. Patient remains on IV antibiotics in the form of Unasyn and will continue at this time. Infectious disease is following. Will continue to follow closely. Objective - Vital Signs Vital signs: Vital Signs Temp 98.6 F 09/28/19 04:24 Pulse 70 09/28/19 04:24 Resp 17 09/28/19 04:24 BP 100/61 09/28/19 04:24 Pulse Ox 95 09/28/19 04:24 Intake & Output 09/27/19 09/28/19 09/28/19 18:59 06:59 18:59 Intake Total 120 1250 Output Total 820 270 500 Balance -700 980 -500 Intake: Intake, IV Titration 1250 Amount Ampicillin-Sulbactam 3 gm 200 In Sodium Chloride 0.9% 100 ml @ 200 mls/hr IVPB Q6H [facility] Rx#:[id number] Sodium Chloride 0.9% 1, 1050 000 ml @ 100 mls/hr IV . Q10H [facility] Rx#:[id number] Oral 120 Output: Drainage 500 270 500 Abdomen 500 270 500 Other 320 Other: Voiding Method Toilet Toilet # Voids 1 1 - Exam GENERAL: The patient is alert and oriented x3, not in any acute distress. Well developed, well nourished. HEENT: Pupils are round and equally reacting to light. EOMI. No scleral icterus. No conjunctival pallor. Normocephalic, atraumatic. No pharyngeal erythema. No thyromegaly. CARDIOVASCULAR: S1 and S2 present. No murmurs, rubs, or gallops. PULMONARY: Chest is clear to auscultation, no wheezing or crackles. ABDOMEN: Soft, mild tenderness upon palpation of the surgical site. Hypoactive bowel sounds noted. ISAI also noted with serous drainage MUSCULOSKELETAL: No joint swelling or deformity. EXTREMITIES: No cyanosis, clubbing, or pedal edema. NEUROLOGICAL: Gross neurological examination did not reveal any focal deficits. SKIN: No rashes. - Labs CBC & Chem 7: 09/28/19 05:58 09/28/19 05:58 Labs: Abnormal Lab Results - Last 24 Hours (Table) 09/27/19 09/27/19 09/28/19 Range/Units 12:04 12:04 05:58 WBC 11.3 H (3.8-10.6) k/uL RBC 3.98 L 3.80 L (4.30-5.90) m/uL Hgb 12.5 L 11.9 L (13.0-17.5) gm/dL Hct 36.7 L 34.7 L (39.0-53.0) % Sodium (137-145) mmol/L Chloride (98-107) mmol/L Glucose (74-99) mg/dL Osmolality 274 L (280-301) mosm/kg Calcium (8.4-10.2) mg/dL 09/28/19 Range/Units 05:58 WBC (3.8-10.6) k/uL RBC (4.30-5.90) m/uL Hgb (13.0-17.5) gm/dL Hct (39.0-53.0) % Sodium 129 L (137-145) mmol/L Chloride 97 L (98-107) mmol/L Glucose 100 H (74-99) mg/dL Osmolality (280-301) mosm/kg Calcium 7.7 L (8.4-10.2) mg/dL Microbiology - Last 24 Hours (Table) 09/26/19 03:07 Blood Culture - Preliminary Blood No Growth after 48 hours Assessment and Plan Assessment: -Acute appendicitis, status post surgery patient had ruptured appendix leading to peritonitis patient is on Unasyn which will be continued, patient has a ISAI drain continues to have significant drainage with movement and position changes. -Hyponatremia possibly hypovolemic hyponatremia, current sodium today is slightly improved at 129. Patient remains on IV fluids and will continue at this time. Will repeat a.m. labs. -Sepsis secondary to appendicitis -Hyperlipidemia -Hypertension -Coronary artery disease -Benign prostatic hypertrophy
[2019-09-28 12:51] LABS: HCT 34.7 % (39.0-53.0); MCH 31.4 pg (25.0-35.0); MCHC 34.5 g/dL (31.0-37.0); Mean Platelet Volume 6.7; Platelet Count 201 k/uL (150-450); RBC 3.81 m/uL (4.30-5.90); RDW 12.5 % (11.5-15.5); WBC 9.7 k/uL (3.8-10.6)
--- NOTE | 2019-09-28 13:07 | P.PN ---
Subjective Patient is seen and examined sitting up in his chair in no acute distress. ISAI drain in place. Complains of mild abdominal discomfort, improving from yesterday. No nausea or vomiting. He has not passed gas, no bowel movement. Output from drain for previous 24 hours is 540 cc. Laboratory data reviewed, hgb 11.9, plt 187, sodium 129, potassium 4.3, creatinine 0.88. GENERAL: No acute distress. Blood pressure 138/81 heart rate 70 afebrile and maintaining oxygen saturation on room air HEENT: Head is atraumatic, normocephalic. Pupils are equal, round. Sclerae anicteric. Conjunctivae are clear. Mucous membranes of the mouth are moist. Neck is supple. ABDOMEN: Soft, nontender. ISAI drain in place with, dressing clean dry and intact. sero-sanguinous drainage in bulb. NEUROLOGIC: Patient is awake, alert and oriented x3. ASSESSMENT Acute appendicitis with rupture, postoperative day #2 laparoscopic appendectomy PLAN Obtain repeat CBC q 6 hours x3 and in the morning. Continue clear liquid diet. Antibiotics per ID. The above impression and plan of care have been discussed and directed by the signing physician. Britt Hoff, nurse practitioner, acting as scribe for signing physician. Objective - Vital Signs Vital signs: Vital Signs Temp 98 F 09/28/19 11:26 Pulse 70 09/28/19 11:26 Resp 16 09/28/19 11:26 BP 138/81 09/28/19 11:26 Pulse Ox 95 09/28/19 11:26 Intake & Output 09/27/19 09/28/19 09/28/19 18:59 06:59 18:59 Intake Total 120 1250 Output Total 820 270 540 Balance -700 980 -540 Intake: Intake, IV Titration 1250 Amount Ampicillin-Sulbactam 3 gm 200 In Sodium Chloride 0.9% 100 ml @ 200 mls/hr IVPB Q6H [facility] Rx#:[id number] Sodium Chloride 0.9% 1, 1050 000 ml @ 100 mls/hr IV . Q10H [facility] Rx#:[id number] Oral 120 Output: Drainage 500 270 540 Abdomen 500 270 540 Other 320 Other: Voiding Method Toilet Toilet # Voids 1 1 - Labs CBC & Chem 7: 09/28/19 12:12 09/28/19 05:58 Labs: Abnormal Lab Results - Last 24 Hours (Table) 09/27/19 09/28/19 09/28/19 Range/Units 12:04 05:58 05:58 RBC 3.80 L (4.30-5.90) m/uL Hgb 11.9 L (13.0-17.5) gm/dL Hct 34.7 L (39.0-53.0) % Sodium 129 L (137-145) mmol/L Chloride 97 L (98-107) mmol/L Glucose 100 H (74-99) mg/dL Osmolality 274 L (280-301) mosm/kg Calcium 7.7 L (8.4-10.2) mg/dL 09/28/19 Range/Units 12:12 RBC 3.81 L (4.30-5.90) m/uL Hgb 12.0 L (13.0-17.5) gm/dL Hct 34.7 L (39.0-53.0) % Sodium (137-145) mmol/L Chloride (98-107) mmol/L Glucose (74-99) mg/dL Osmolality (280-301) mosm/kg Calcium (8.4-10.2) mg/dL Microbiology - Last 24 Hours (Table) 09/26/19 03:07 Blood Culture - Preliminary Blood No Growth after 48 hours
--- NOTE | 2019-09-28 15:00 | CDI ---
Documentation Clarification Form Date: 09/28/2019 02:23:21 PM From: Rosina Coy RN, CCDS Admit Date: 09/26/2019 02:01:00 PM Patient Name: Mian Thapa Visit Number: [id number] Discharge Date: ATTENTION: The Clinical Documentation Specialists (CDI) and [facility] Coding Staff appreciate your assistance in clarifying documentation. Please respond to the clarification below the line at the bottom and electronically sign. The CDI & [facility] Coding staff will review the response and follow-up if needed. Please note: Queries are made part of the Legal Health Record. If you have any questions, please contact the author of this message via ITS. Dr. Ken Holbrook The patient presented with abdominal pain, ruled in for acute appendicitis. Medical and Infectious disease consults and progress notes have documented sepsis, and this is not documented by the attending physician, and further clarification is requested. History/Risk Factors: Hypertension, Alcohol use daily Clinical Indicators: 73-year-old male to ER on 09/25 with complaints of right side abdominal pain with positive McBurney point tenderness. 09/25 Lab findings: WBC 12.8, Lactic acid 1.1 CT of abdomen/pelvis: Appendicitis with possible rupture 09/25 @01:17 Vital Signs: 164/84 70 18 99 Treatment: Laparoscopic appendectomy Unasyn 3 gm IV Q6Hrs .9 Saline @100 mls hr Dilaudid 1mg IV Q3hrs prn pain Monitor CBC, Lytes 09/25 ID Consults: (Dr. Harris) "Patent admitted to the hospital with sepsis in this patient did spiked fever of 100 degrees, did have elevated white count of 12.8 source is acute gangrenous appendicitis". 09/25 Internal Medicine consult: (Dr. Morfin) Sepsis secondary to appendicitis" In your professional opinion, can you please clarify Sepsis secondary to acute appendicitis? Sepsis ruled in Sepsis ruled out Other, please specify Unable to determine (Last Revision: September 2017) Sepsis ruled in MTDD
[2019-09-28] MEDS: KETOROLAC 30 MG/ML 1 ML VIAL IVP PRN ×2 (16:31→21:11)
[2019-09-28 17:42] LABS: HCT 34.4 % (39.0-53.0); HGB 12.1 gm/dL (13.0-17.5); MCHC 35.3 g/dL (31.0-37.0); MCV 90.7 fL (80.0-100.0); Mean Platelet Volume 6.9; Platelet Count 196 k/uL (150-450); RBC 3.79 m/uL (4.30-5.90); RDW 12.4 % (11.5-15.5); WBC 10.2 k/uL (3.8-10.6)
--- NOTE | 2019-09-29 00:01 | PN ---
PROGRESS NOTE DATE OF SERVICE: 09/28/2019 REASON FOR FOLLOWUP: Acute gangrenous appendicitis. INTERVAL HISTORY: The patient is currently afebrile, has been breathing comfortably. Apparently the patient did have increased output through the ISAI, but denies having any chest pain or shortness of breath or cough. PHYSICAL EXAMINATION: Blood pressure is 132/71 with a pulse of 76, temperature 98.8. He is 95% on room air. General description is an elderly male lying in bed in no distress. RESPIRATORY SYSTEM: Unlabored breathing with decreased intensity of breath sounds. No wheeze. HEART: S1, S2. Regular rate and rhythm. ABDOMEN: Soft. No tenderness. LABS: Hemoglobin is 12.1, white count 10.2. DIAGNOSTIC IMPRESSION AND PLAN: Patient with acute gangrenous appendicitis, status post appendectomy. The patient is currently covered with Unasyn; to continue and will monitor his clinical course closely. MMODL / IJN: [id number] /
[2019-09-29] MEDS: AMPICILLIN-SULBACTAM 3 GM in SODIUM CHLORIDE 0.9% 100 ML IVPB SCH ×4 (02:33→21:02)
[2019-09-29] MEDS: SODIUM CHLORIDE 0.9% 1,000 ML IV SCH ×4 (02:34→23:02)
[2019-09-29] MEDS: KETOROLAC 30 MG/ML 1 ML VIAL IVP PRN (02:38)
[2019-09-29 04:27] LABS: Hemoglobin A1C 4.7 % (4.0-6.0)
[2019-09-29 05:52] LABS: HCT 31.5 % (39.0-53.0); MCH 32.2 pg (25.0-35.0); Mean Platelet Volume 7.1; Platelet Count 183 k/uL (150-450); RBC 3.42 m/uL (4.30-5.90); RDW 12.5 % (11.5-15.5); WBC 7.8 k/uL (3.8-10.6)
[2019-09-29 06:08] LABS: African American GFR (CKD) >90 (>60 ml/min/1.73 sqM); Anion Gap 5 mmol/L; Blood Urea Nitrogen 16 mg/dL (9-20); Calcium 7.9 mg/dL (8.4-10.2); Carbon Dioxide 27 mmol/L (22-30); Chloride 99 mmol/L (98-107); Glucose 102 mg/dL (74-99); Non-African American GFR(CKD) 84 (>60 ml/min/1.73 sqM); Potassium 3.7 mmol/L (3.5-5.1); Sodium 131 mmol/L (137-145)
--- NOTE | 2019-09-29 09:06 | P.PN ---
Subjective Patient is seen and examined sitting up in his chair in no acute distress. ISAI drain in place. Complains of increased abdominal pain today, attributes this to only taking toradol last night for pain control rather than dilaudid. Output from the ISAI yesterday was 945 ml. He is starting to pass gas but no bowel movement. Laboratory data reviewed, WBC 7.8, hemoglobin 11 and platelets 183. Hemoglobin trend yesterday has remained stable. GENERAL: No acute distress. Blood pressure 139/77 heart rate 75 afebrile maintaining oxygen saturation on room air HEENT: Head is atraumatic, normocephalic. Pupils are equal, round. Sclerae anicteric. Conjunctivae are clear. Mucous membranes of the mouth are moist. Neck is supple. ABDOMEN: Soft, nontender. ISAI drain in place with, dressing clean dry and intact. sero-sanguinous drainage in bulb. NEUROLOGIC: Patient is awake, alert and oriented x3. ASSESSMENT Acute appendicitis with rupture, postoperative day #3 laparoscopic appendectomy Sepsis secondary to appendicitis PLAN Repeat CBC in the morning. Advance his diet as tolerated. Discontinue IV fluids. Continue drain care and education with the patient per nursing staff for [facility]. Encourage incentive spirometer use regularly and slowly start to increase activity around the room. Possible discharge in 24 hours. Antibiotics per ID. The above impression and plan of care have been discussed and directed by the signing physician. Britt Hoff, nurse practitioner, acting as scribe for signing physician. Objective - Vital Signs Vital signs: Vital Signs Temp 98.6 F 09/29/19 05:00 Pulse 75 09/29/19 05:00 Resp 16 09/29/19 05:00 BP 139/77 09/29/19 05:00 Pulse Ox 95 09/29/19 05:00 Intake & Output 09/28/19 09/29/19 09/29/19 18:59 06:59 18:59 Intake Total 900 Output Total 700 245 155 Balance 200 -245 -155 Intake: Intake, IV Titration 900 Amount Ampicillin-Sulbactam 3 gm 100 In Sodium Chloride 0.9% 100 ml @ 200 mls/hr IVPB Q6H [facility] Rx#:[id number] Sodium Chloride 0.9% 1, 800 000 ml @ 100 mls/hr IV . Q10H [facility] Rx#:[id number] Output: Drainage 700 245 155 Abdomen 700 245 155 Other: Voiding Method Toilet # Voids 3 - Labs CBC & Chem 7: 09/29/19 05:36 09/29/19 05:36 Labs: Abnormal Lab Results - Last 24 Hours (Table) 09/28/19 09/28/19 09/28/19 Range/Units 05:58 12:12 17:26 RBC 3.81 L 3.79 L (4.30-5.90) m/uL Hgb 12.0 L 12.1 L (13.0-17.5) gm/dL Hct 34.7 L 34.4 L (39.0-53.0) % Sodium 129 L (137-145) mmol/L Chloride 97 L (98-107) mmol/L Glucose 100 H (74-99) mg/dL Calcium 7.7 L (8.4-10.2) mg/dL 09/29/19 09/29/19 Range/Units 05:36 05:36 RBC 3.42 L (4.30-5.90) m/uL Hgb 11.0 L (13.0-17.5) gm/dL Hct 31.5 L (39.0-53.0) % Sodium 131 L (137-145) mmol/L Chloride (98-107) mmol/L Glucose 102 H (74-99) mg/dL Calcium 7.9 L (8.4-10.2) mg/dL Microbiology - Last 24 Hours (Table) 09/26/19 03:07 Blood Culture - Preliminary Blood No Growth after 72 hours
[2019-09-29] MEDS: POLYETHYLENE GLYCOL 3350 17 GM POWD.PACK PO SCH (09:10)
[2019-09-29] MEDS: HYDROcodone/APAP 5-325MG 1 EACH TAB PO PRN ×3 (09:10→21:02)
--- NOTE | 2019-09-29 12:23 | P.PN ---
Subjective 73-year-old pleasant male was admitted for ruptured appendix patient is status post laparotomy patient is presently on Unasyn rest of antibiotics were discontinued infectious disease is following the patient patient has significant drainage from the surgical drain. Patient did not pass gas yet that patient did not move his bowels yet patient is complaining of pain in the surgical site area. 09/28/2019 Patient is seen in follow-up today stating that he feels better than yesterday although continues to have some significant drainage noted from the ISAI drain more so with movement and position changes. States he has been up and walking around with no difficulties. Patient denies any passing of gas or bowel movements at this time. Patient sodium today lightly improved at 129 and patient will continue on IV fluids at this time. Currently no reports of chest pain, shortness of breath, or palpitations. Patient is afebrile. Patient rem ains on IV antibiotics in the form of Unasyn and will continue at this time. Infectious disease is following. Will continue to follow closely. 09/29/2019 Patient still didn't move his bowels still but did pass gas patient was started on regular diet today opiate analgesia 6 are being cut down at this time patient's oral serum sodium remains at 131 can you with IV fluids mostly hypervolemic hyponatremia can have some SIADH competent from pain Constitutional: Denied any fatigue denied any fever. Cardio vascular: denied any chest pain, palpitations Gastrointestinal denied any nausea vomiting Pulmonary: Denied any shortness of breath cough Neurologic denied any new focal deficits All inpatient medications were reviewed and appropriate changes in these medications as dictated in the interval history and assessment and plan. Objective - Vital Signs Vital signs: Vital Signs Temp 98.9 F 09/29/19 11:11 Pulse 66 09/29/19 11:11 Resp 16 09/29/19 11:11 BP 150/81 09/29/19 11:11 Pulse Ox 95 09/29/19 11:11 Intake & Output 09/28/19 09/29/19 09/29/19 18:59 06:59 18:59 Intake Total 900 Output Total 700 245 240 Balance 200 -245 -240 Intake: Intake, IV Titration 900 Amount Ampicillin-Sulbactam 3 gm 100 In Sodium Chloride 0.9% 100 ml @ 200 mls/hr IVPB Q6H [facility] Rx#:[id number] Sodium Chloride 0.9% 1, 800 000 ml @ 100 mls/hr IV . Q10H [facility] Rx#:[id number] Output: Drainage 700 245 240 Abdomen 700 245 240 Other: Voiding Method Toilet Toilet # Voids 3 - Exam PHYSICAL EXAMINATION: GENERAL: The patient is alert and oriented x3, not in any acute distress. Well developed, well nourished. HEENT: Pupils are round and equally reacting to light. EOMI. No scleral icterus. No conjunctival pallor. Normocephalic, atraumatic. No pharyngeal erythema. No thyromegaly. CARDIOVASCULAR: S1 and S2 present. No murmurs, rubs, or gallops. PULMONARY: Chest is clear to auscultation, no wheezing or crackles. ABDOMEN: Soft, minimal tenderness in the surgical site area surgical site area appears to be clean bowel sounds are fairly good, sluggish bowel sounds to be drained with significant drainage which is bloody MUSCULOSKELETAL: No joint swelling or deformity. EXTREMITIES: No cyanosis, clubbing, or pedal edema. NEUROLOGICAL: Gross neurological examination did not reveal any focal deficits. SKIN: No rashes. - Labs CBC & Chem 7: 09/29/19 05:36 09/29/19 05:36 Labs: Abnormal Lab Results - Last 24 Hours (Table) 09/28/19 09/28/19 09/29/19 Range/Units 12:12 17:26 05:36 RBC 3.81 L 3.79 L (4.30-5.90) m/uL Hgb 12.0 L 12.1 L (13.0-17.5) gm/dL Hct 34.7 L 34.4 L (39.0-53.0) % Sodium 131 L (137-145) mmol/L Glucose 102 H (74-99) mg/dL Calcium 7.9 L (8.4-10.2) mg/dL 09/29/19 Range/Units 05:36 RBC 3.42 L (4.30-5.90) m/uL Hgb 11.0 L (13.0-17.5) gm/dL Hct 31.5 L (39.0-53.0) % Sodium (137-145) mmol/L Glucose (74-99) mg/dL Calcium (8.4-10.2) mg/dL Microbiology - Last 24 Hours (Table) 09/26/19 03:07 Blood Culture - Preliminary Blood No Growth after 72 hours Assessment and Plan Plan: -Acute appendicitis, status post surgery patient had ruptured appendix leading to peritonitis patient is on Unasyn which will be continued. -Hyponatremia possibly hypovolemic hyponatremia, current sodium today is slightly improved at 131, patient was started on diet Because of continued hyponatremia as patient is received free water gargle continue IV fluids today. There may be a competent of SIADH from pain. -Sepsis secondary to appendicitis -Hyperlipidemia -Hypertension -Coronary artery disease -Benign prostatic hypertrophy
[2019-09-29 20:32] VITALS: RESP 18
[2019-09-30] MEDS: AMPICILLIN-SULBACTAM 3 GM in SODIUM CHLORIDE 0.9% 100 ML IVPB SCH ×2 (02:54→08:44)
[2019-09-30 05:04] VITALS: BP 137/82; PULSE 77; TEMP 97.7
--- NOTE | 2019-09-30 05:49 | PN ---
PROGRESS NOTE DATE OF SERVICE: 09/29/2019 REASON FOR FOLLOWUP: Acute gangrenous appendicitis. INTERVAL HISTORY: The patient is currently afebrile, has been breathing comfortably. Abdominal pain is currently controlled. Denies having any chest pain. No shortness of breath or cough and did have a bowel movement. PHYSICAL EXAMINATION: Blood pressure 134/75 with a pulse of 63, temperature 98.1. He is 93% on room air. General description is an elderly male up in the chair in no distress. Respiratory system: Unlabored breathing, clear to auscultation anteriorly. Heart S1, S2. Regular rate and rhythm. Abdomen soft, no tenderness. LABS: Hemoglobin is 11, white count 7.8, creatinine 0.90. DIAGNOSTIC IMPRESSION AND PLAN: Patient with acute gangrenous appendicitis, status post appendectomy. Patient seemed to have shown clinical improvement currently. He will finish therapy with oral Augmentin on discharge. Continue supportive care. MMODL / IJN: [id number] /
[2019-09-30 06:29] LABS: HCT 35.2 % (39.0-53.0); HGB 11.8 gm/dL (13.0-17.5); MCH 30.9 pg (25.0-35.0); MCHC 33.6 g/dL (31.0-37.0); MCV 92.2 fL (80.0-100.0); Mean Platelet Volume 6.6; Platelet Count 285 k/uL (150-450); RBC 3.82 m/uL (4.30-5.90); RDW 12.7 % (11.5-15.5); WBC 9.3 k/uL (3.8-10.6)
[2019-09-30 06:40] LABS: African American GFR (CKD) >90 (>60 ml/min/1.73 sqM); Anion Gap 9 mmol/L; Blood Urea Nitrogen 15 mg/dL (9-20); Carbon Dioxide 22 mmol/L (22-30); Chloride 102 mmol/L (98-107); Glucose 109 mg/dL (74-99); Non-African American GFR(CKD) 87 (>60 ml/min/1.73 sqM); Potassium 3.4 mmol/L (3.5-5.1); Sodium 133 mmol/L (137-145)
[2019-09-30] MEDS: POLYETHYLENE GLYCOL 3350 17 GM POWD.PACK PO SCH (08:40)
[2019-09-30] MEDS: HYDROcodone/APAP 5-325MG 1 EACH TAB PO PRN (08:45)
[2019-09-30] MEDS: SODIUM CHLORIDE 0.9% 1,000 ML IV SCH (08:46)
--- NOTE | 2019-09-30 10:20 | P.DS ---
Providers Date of admission: 09/26/19 14:01 Expected date of discharge: 09/30/19 Attending physician: Ken Holbrook Consults: 09/26/19 08:44 Consult Physician Routine Consulting Provider: Shanita Mckeon Consult Reason/Comments: Medical management Do you want consulting provider notified?: Yes Consult Physician Routine Consulting Provider: Annette Harris Consult Reason/Comments: Gangrenous appendicitis Do you want consulting provider notified?: Yes Primary care physician: Reji Marino MD Hospital Course: Patient admitted with abdominal pain. Underwent laparoscopic appendectomy for a ruptured appendicitis. Doing better at this time. White blood cell count normal at 9.3, hemoglobin 11.8. Patient is tolerating diet. He is passing flatus. No bowel movement. He would like to go home today. Prescription for Augmentin and [place] will be provided. Abdomen remained soft with minimal distention, nontender. Follow-up with Dr. Sheron Osman. Patient Condition at Discharge: Good Plan - Discharge Summary New Discharge Prescriptions: New Amoxic-Pot Clav 875-125Mg [Augmentin 875-125] 1 tab PO BID 7 Days #14 tab Hydrocodone/Acetaminophen [[place] 5-325] 1 tab PO Q6HR PRN 3 Days #10 tab PRN Reason: Pain No Action Losartan [Cozaar] 25 mg PO DAILY Vitamin E 400 unit PO DAILY [place]-3 Fatty Acids/Fish Oil [Fish Oil 1,000 mg Softgel] 1 cap PO DAILY Aspirin EC [Ecotrin Low Dose] 81 mg PO DAILY Zinc 50 mg PO DAILY PRN PRN Reason: Cold Symptoms Ubidecarenone [Co Q-10] 100 mg PO DAILY Potassium Gluconate 99 mg PO Q48H Magnesium 200 mg PO Q48H Calcium Carbonate [Calcium] 600 mg PO Q48H Serrapeptase 1 tab PO DAILY Discharge Medication List Aspirin EC [Ecotrin Low Dose] 81 mg PO DAILY 09/26/19 [History] Calcium Carbonate [Calcium] 600 mg PO Q48H 09/26/19 [History] Losartan [Cozaar] 25 mg PO DAILY 09/26/19 [History] Magnesium 200 mg PO Q48H 09/26/19 [History] [place]-3 Fatty Acids/Fish Oil [Fish Oil 1,000 mg Softgel] 1 cap PO DAILY 09/26/19 [History] Potassium Gluconate 99 mg PO Q48H 09/26/19 [History] Serrapeptase 1 tab PO DAILY 09/26/19 [History] Ubidecarenone [Co Q-10] 100 mg PO DAILY 09/26/19 [History] Vitamin E 400 unit PO DAILY 09/26/19 [History] Zinc 50 mg PO DAILY PRN 09/26/19 [History] Amoxic-Pot Clav 875-125Mg [Augmentin 875-125] 1 tab PO BID 7 Days #14 tab 09/30/19 [Rx] Hydrocodone/Acetaminophen [[place] 5-325] 1 tab PO Q6HR PRN 3 Days #10 tab 09/30/19 [Rx] Follow up Appointment(s)/Referral(s): Reji Marino MD [Primary Care Provider] - 1-2 days Ken Holbrook MD [STAFF PHYSICIAN] - 10/03/19 Patient Instructions/Handouts: Open Appendectomy (DC) Activity/Diet/Wound Care/Special Instructions: No driving while taking narcotic pain medication. You may shower. No swimming, soaking, hot tubs or tub baths. No lifting greater than 10 pounds. Limited activity until follow up with surgeon. Empty drain 2-3 times per day or more as needed, record drainage amount and bring to follow up appointment.
== END 2019-09-30 13:11 | disposition home or self-care (01) | DRG 853 ==
LOC: EC 01:12 → 5NMEDONC 03:20 → OBSVTOIN 14:01
PROVIDERS: ADMIT Surgery; ATTEND Surgery
PROC: 0DTJ4ZZ Resection of Appendix, Percutaneous Endoscopic Approach (ICD-10-PCS; principal; 2019-09-26 06:59)
DX: A41.9 Sepsis, unspecified organism (principal); K35.32 Acute appendicitis with perforation, localized peritonitis, and gangrene, without abscess; E87.1 Hypo-osmolality and hyponatremia; E78.5 Hyperlipidemia, unspecified; F17.210 Nicotine dependence, cigarettes, uncomplicated; I10 Essential (primary) hypertension; I25.10 Atherosclerotic heart disease of native coronary artery without angina pectoris; I25.2 Old myocardial infarction; K59.00 Constipation, unspecified; N40.0 Benign prostatic hyperplasia without lower urinary tract symptoms; Z79.82 Long term (current) use of aspirin; Z79.899 Other long term (current) drug therapy; Z88.5 Allergy status to narcotic agent; M19.90 Unspecified osteoarthritis, unspecified site
CPT/HCPCS: 36415; 74177; 80048; 80053; 81001; 82570; 83036; 83605; 83690; 83930; 83935; 84300; 84443; 84560; 85025; 85027; 85610; 85730; 86850; 86900; 86901; 87040; 88304; 93005; 96361; 96365; 96375; 99285

== ENCOUNTER 2019-10-15 03:02 | Inpatient (IN) | payer MEDICARE, OTHER ==
[2019-10-15] MEDS ORDERED: SODIUM CHLORIDE 0.9% 500 ML 500 ML IV ONE (03:49)
[2019-10-15] MEDS ORDERED: KETOROLAC 30 MG/ML 1 ML VIAL IVP STA (03:50)
[2019-10-15 04:19] LABS: Basophils % (A) 0 %; Eosinophils # (A) 0.1 k/uL (0-0.7); Eosinophils % (A) 0 %; HCT 34.3 % (39.0-53.0); HGB 11.2 gm/dL (13.0-17.5); Lymphocytes # (A) 0.8 k/uL (1.0-4.8); Lymphocytes % (A) 6 %; MCH 30.1 pg (25.0-35.0); MCHC 32.7 g/dL (31.0-37.0); MCV 92.1 fL (80.0-100.0); Mean Platelet Volume 6.4; Monocytes % (A) 8 %; Neutrophils # (A) 10.7 k/uL (1.3-7.7); Neutrophils % (A) 84 %; Platelet Count 458 k/uL (150-450); RBC 3.73 m/uL (4.30-5.90); RDW 13.2 % (11.5-15.5); WBC 12.8 k/uL (3.8-10.6)
[2019-10-15 04:25] LABS: Appearance,Urine Clear (Clear); Bilirubin,Urine Negative (Negative); Blood,Urine Small (Negative); Color,Urine Yellow; Glucose,Urine (UA) Negative (Negative); Ketones,Urine Negative (Negative); Leukocyte Esterase,Urine Negative (Negative); Mucus,Urine Occasional /hpf; Nitrite,Urine Negative (Negative); PH, Urine 5.5 (5.0-8.0); Protein,Urine Trace (Negative); RBC,Urine 5 /hpf (0-5); Urobilinogen,Urine <2.0 mg/dL (<2.0); WBC,Urine 2 /hpf (0-5)
[2019-10-15 04:28] LABS: ALT 122 U/L (4-49); AST 85 U/L (17-59); African American GFR (CKD) >90 (>60 ml/min/1.73 sqM); Alkaline Phosphatase 452 U/L (38-126); Anion Gap 8 mmol/L; Blood Urea Nitrogen 14 mg/dL (9-20); Calcium 8.5 mg/dL (8.4-10.2); Carbon Dioxide 26 mmol/L (22-30); Chloride 94 mmol/L (98-107); Glucose 106 mg/dL (74-99); Non-African American GFR(CKD) 89 (>60 ml/min/1.73 sqM); Sodium 128 mmol/L (137-145); Total Bilirubin 0.9 mg/dL (0.2-1.3); Total Protein 6.1 g/dL (6.3-8.2)
[2019-10-15 04:33] LABS: Potassium 4.2 mmol/L (3.5-5.1)
[2019-10-15 04:36] LABS: INR 1.1 (<1.2); Partial Thromboplastin Time 23.5 sec (22.0-30.0); Prothrombin Time 11.1 sec (9.0-12.0)
--- NOTE | 2019-10-15 04:40 | ED ---
Abdominal Pain HPI - General Chief Complaint: Abdominal Pain Stated Complaint: Abdominal pain post-surgical Time Seen by Provider: 10/15/19 03:10 Source: patient, family Mode of arrival: ambulatory Limitations: no limitations - History of Present Illness Initial Comments: The patient is a 73-year-old male with past medical history of hyperlipidemia, hypertension and appendicitis with recent appendectomy on the who presents to emergency room with reported nausea, vomiting and abdominal pain. Patient reports that he's been having lower abdominal pain with lack of bowel movements. He thought it was secondary to constipation being on [place] after surgery so he quit taking the [place] 4 days ago. States he's been sticking to Advil. He has had nausea recently attempts to eat something. He has had several episodes of nonbilious, nonbloody vomiting. For the past 2 days he has had normal bowel movements. Denies hematochezia, melanotic stools or diarrhea. No fevers or chills. No back or flank pain. Denies dysuria, hematuria or difficulty voiding. There are no other alleviating, precipitating or modifying factors - Related Data Home Medications Medication Instructions Recorded Confirmed Aspirin EC [Ecotrin Low Dose] 81 mg PO Q48H 09/26/19 10/15/19 Losartan [Cozaar] 25 mg PO HS 09/26/19 10/15/19 Magnesium 200 mg PO Q48H 09/26/19 10/15/19 [place]-3 Fatty Acids/Fish Oil [Fish 1 cap PO Q48H 09/26/19 10/15/19 Oil 1,000 mg Softgel] Potassium Gluconate 99 mg PO Q48H 09/26/19 10/15/19 Ubidecarenone [Co Q-10] 100 mg PO Q48H 09/26/19 10/15/19 Ascorbic Acid [Vitamin C] 500 mg PO Q48H 10/15/19 10/15/19 [place] 500 mg PO Q48H 10/15/19 10/15/19 Previous Rx's Medication Instructions Recorded Ciprofloxacin HCl [Cipro] 500 mg PO Q12HR 3 Days #28 tab 10/19/19 metroNIDAZOLE [Flagyl] 500 mg PO Q8HR #42 tab 10/19/19 Allergies Allergy/AdvReac Type Severity Reaction Status Date / Time morphine Allergy Itching Verified 10/15/19 07:23 Review of Systems ROS Statement: Those systems with pertinent positive or pertinent negative responses have been documented in the HPI. ROS Other: All systems not noted in ROS Statement are negative. Past Medical History Past Medical History: Hyperlipidemia, Hypertension, Myocardial Infarction (MT), Osteoarthritis (OA), Prostate Disorder Additional Past Medical History / Comment(s): MT Last Myocardial Infarction Date:: History of Any Multi-Drug Resistant Organisms: None Reported Past Surgical History: Adenoidectomy, Appendectomy, Heart Catheterization, Ortho pedic Surgery, Tonsillectomy Additional Past Surgical History / Comment(s): heart cath 1991; carpal tunnel surgery; vasectomy, appemdectomy 09/2019 Past Anesthesia/Blood Transfusion Reactions: No Reported Reaction Past Psychological History: No Psychological Hx Reported Smoking Status: Never smoker Past Alcohol Use History: Daily Past Drug Use History: None Reported - Past Family History Mother Additional Family Medical History / Comment(s): No significant family history of colon cancer General Exam Limitations: no limitations General appearance: alert, in no apparent distress Head exam: Present: atraumatic, normocephalic, normal inspection Eye exam: Present: normal appearance, PERRL, EOMI. Absent: scleral icterus, conjunctival injection, periorbital swelling ENT exam: Present: normal exam, mucous membranes moist Neck exam: Present: normal inspection. Absent: tenderness, meningismus, lymphadenopathy Respiratory exam: Present: normal lung sounds bilaterally. Absent: respiratory distress, wheezes, rales, rhonchi, stridor Cardiovascular Exam: Present: regular rate, normal rhythm, normal heart sounds. Absent: systolic murmur, diastolic murmur, rubs, gallop, clicks GI/Abdominal exam: Present: soft, distended, tenderness (periumbilical with palpable underlying mass-like structure), normal bowel sounds. Absent: guarding, rebound, rigid Extremities exam: Present: normal inspection, full ROM, normal capillary refill. Absent: tenderness, pedal edema, joint swelling, calf tenderness Back exam: Present: normal inspection Neurological exam: Present: alert, oriented X3, CN II-XII intact Psychiatric exam: Present: normal affect, normal mood Skin exam: Present: warm, dry, intact, normal color. Absent: rash Course Vital Signs 10/15/19 10/15/19 03:07 06:18 Temperature 98.7 F Pulse Rate 68 80 Respiratory 20 18 Rate Blood Pressure 161/99 134/77 O2 Sat by Pulse 98 98 Oximetry Medical Decision Making - Medical Decision Making Upon arrival the patient is placed into room 10. A thorough history and physical exam was performed. Peripheral IV was established. The patient was given 15 mg of Toradol for pain control. He refuses anything for nausea this time. Laboratory studies were conducted. On physical exam patient does have palpable induration to his lower abdomen. CAT scan was performed. Laboratory studies do demonstrated white blood cell count 12.8. Sodium is low at 128. AST 85, ALP 122, alk phos of 452. UA today demonstrates small blood and occasional mucus. CT of the patient's abdomen and pelvis demonstrates multiple regular thick-walled fluid collections in the lower abdomen and pelvis consistent with multiple abscesses. No free air. This is changed compared to old exam. Previous exam shows acute appendicitis with localized fluid collection around the appendix. I did discuss results with the patient. A call discuss case with Dr. Branch. She does request that I place the patient on Zosyn and admit to Dr. Holbrook. I discussed this with the patient did agree to the treatment plan. Patient admitted in stable condition - Lab Data Result diagrams: 10/19/19 08:40 10/19/19 08:40 Lab Results 10/15/19 10/15/19 10/15/19 Range/Units 01:06 03:56 03:56 WBC 12.8 H (3.8-10.6) k/uL RBC 3.73 L (4.30-5.90) m/uL Hgb 11.2 L (13.0-17.5) gm/dL Hct 34.3 L (39.0-53.0) % MCV 92.1 (80.0-100.0) fL MCH 30.1 (25.0-35.0) pg MCHC 32.7 (31.0-37.0) g/dL RDW 13.2 (11.5-15.5) % Plt Count 458 H (150-450) k/uL Neutrophils % 84 % Lymphocytes % 6 % Monocytes % 8 % Eosinophils % 0 % Basophils % 0 % Neutrophils # 10.7 H (1.3-7.7) k/uL Lymphocytes # 0.8 L (1.0-4.8) k/uL Monocytes # 1.0 (0-1.0) k/uL Eosinophils # 0.1 (0-0.7) k/uL Basophils # 0.0 (0-0.2) k/uL PT 11.1 (9.0-12.0) sec INR 1.1 (<1.2) APTT 23.5 (22.0-30.0) sec Sodium (137-145) mmol/L Potassium (3.5-5.1) mmol/L Chloride (98-107) mmol/L Carbon Dioxide (22-30) mmol/L Anion Gap mmol/L BUN (9-20) mg/dL Creatinine (0.66-1.25) mg/dL Est GFR (CKD-EPI)AfAm (>60 ml/min/1.73 sqM) Est GFR (CKD-EPI)NonAf (>60 ml/min/1.73 sqM) Glucose (74-99) mg/dL Plasma Lactic Acid [place] (0.7-2.0) mmol/L Calcium (8.4-10.2) mg/dL Total Bilirubin (0.2-1.3) mg/dL AST (17-59) U/L ALT (4-49) U/L Alkaline Phosphatase (38-126) U/L Total Protein (6.3-8.2) g/dL Albumin (3.5-5.0) g/dL Lipase (23-300) U/L Urine Color Yellow Urine Appearance Clear (Clear) Urine pH 5.5 (5.0-8.0) Ur Specific [place] 1.020 (1.001-1.035) Urine Protein Trace H (Negative) Urine Glucose (UA) Negative (Negative) Urine Ketones Negative (Negative) Urine Blood Small H (Negative) Urine Nitrite Negative (Negative) Urine Bilirubin Negative (Negative) Urine Urobilinogen <2.0 (<2.0) mg/dL Ur Leukocyte Esterase Negative (Negative) Urine RBC 5 (0-5) /hpf Urine WBC 2 (0-5) /hpf Urine Mucus Occasional H (None) /hpf 10/15/19 10/15/19 Range/Units 03:56 03:56 WBC (3.8-10.6) k/uL RBC (4.30-5.90) m/uL Hgb (13.0-17.5) gm/dL Hct (39.0-53.0) % MCV (80.0-100.0) fL MCH (25.0-35.0) pg MCHC (31.0-37.0) g/dL RDW (11.5-15.5) % Plt Count (150-450) k/uL Neutrophils % % Lymphocytes % % Monocytes % % Eosinophils % % Basophils % % Neutrophils # (1.3-7.7) k/uL Lymphocytes # (1.0-4.8) k/uL Monocytes # (0-1.0) k/uL Eosinophils # (0-0.7) k/uL Basophils # (0-0.2) k/uL PT (9.0-12.0) sec INR (<1.2) APTT (22.0-30.0) sec Sodium 128 L (137-145) mmol/L Potassium 4.2 (3.5-5.1) mmol/L Chloride 94 L (98-107) mmol/L Carbon Dioxide 26 (22-30) mmol/L Anion Gap 8 mmol/L BUN 14 (9-20) mg/dL Creatinine 0.79 (0.66-1.25) mg/dL Est GFR (CKD-EPI)AfAm >90 (>60 ml/min/1.73 sqM) Est GFR (CKD-EPI)NonAf 89 (>60 ml/min/1.73 sqM) Glucose 106 H (74-99) mg/dL Plasma Lactic Acid [place] 0.8 (0.7-2.0) mmol/L Calcium 8.5 (8.4-10.2) mg/dL Total Bilirubin 0.9 (0.2-1.3) mg/dL AST 85 H (17-59) U/L ALT 122 H (4-49) U/L Alkaline Phosphatase 452 H (38-126) U/L Total Protein 6.1 L (6.3-8.2) g/dL Albumin 3.0 L (3.5-5.0) g/dL Lipase 152 (23-300) U/L Urine Color Urine Appearance (Clear) Urine pH (5.0-8.0) Ur Specific [place] (1.001-1.035) Urine Protein (Negative) Urine Glucose (UA) (Negative) Urine Ketones (Negative) Urine Blood (Negative) Urine Nitrite (Negative) Urine Bilirubin (Negative) Urine Urobilinogen (<2.0) mg/dL Ur Leukocyte Esterase (Negative) Urine RBC (0-5) /hpf Urine WBC (0-5) /hpf Urine Mucus (None) /hpf - EKG Data EKG Comments: EKG demonstrates normal sinus rhythm with a ventricular rate of 83. HI interval 164. QRS 88. QTC of 437. Inverted T waves in lead 3. No acute ST segment elevations Disposition Clinical Impression: Abdominal pain, Abdominal abscess, S/P appendectomy Disposition: ADMITTED IP TO THIS HOSP Condition: Stable Is patient prescribed a controlled substance at d/c from ED?: No Decision to Admit Reason: Admit from EC Decision Date: 10/15/19 Decision Time: 05:39
--- NOTE | 2019-10-15 05:14 | CT ---
EXAMINATION TYPE: CT abdomen pelvis w con DATE OF EXAM: 10/15/2019 COMPARISON: 09/26/2019 HISTORY: abdominal pain after recent appendectiomy CT DLP: 999.4 mGycm Automated exposure control for dose reduction was used. CONTRAST: Performed with IV Contrast, patient injected with 100mL mL of Isovue 300. The lung bases are clear of infiltrate. There is no pleural effusion. Heart size is normal. There is no pericardial effusion. Liver and spleen appear normal. There is no pancreatic mass. Stomach is intact. Gallbladder appears n ormal. Bile ducts are not dilated. There is no adrenal mass. Kidneys show satisfactory contrast opacification. There is no hydronephrosi s. There is normal excretion on the delayed images. There is no retroperitoneal adenopathy. Ureters a re not dilated. Bladder distends smoothly. There is no inguinal hernia. There is irregular fluid collections in multi ple areas of the abdomen in the low pelvis and lower anterior abdomen with thick yu that measure a pproximately 5 mm. Exam is limited by lack of oral contrast. There is fat stranding in the right lowe r quadrant at the site of the appendectomy. The largest fluid collection is in the anterior lower abd omen and measures 9 cm in greatest dimension. I see no definite bowel obstruction. There is no free a ir. There are mild spondylotic changes in the lumbar spine. There is some mild to moderate L4-5 spina l stenosis due to facet arthropathy.. There are sigmoid diverticula without evidence of diverticuliti s. IMPRESSION: Multiple irregular thick wall fluid collections in the lower abdomen and pelvis consistent with multi ple abscesses. No free air. This is a change compared to old exam. Previous exam shows acute appendic itis with localized fluid collection around the appendix.
[2019-10-15] MEDS ORDERED: NALOXONE 0.4 MG/ML 1 ML VIAL IV PRN (05:39)
[2019-10-15] MEDS: SODIUM CHLORIDE 0.9% 1,000 ML IV SCH (06:57)
[2019-10-15] MEDS: PIPERACILLIN-TAZOBACTAM 3.375 GM in SODIUM CHLORIDE 0.9% 100 ML IVPB SCH ×3 (07:28→23:38)
[2019-10-15 09:24] LABS: Basophils % (A) 0 %; Eosinophils % (A) 0 %; HCT 30.7 % (39.0-53.0); HGB 10.5 gm/dL (13.0-17.5); Lymphocytes # (A) 0.8 k/uL (1.0-4.8); Lymphocytes % (A) 6 %; MCH 30.5 pg (25.0-35.0); MCHC 34.3 g/dL (31.0-37.0); MCV 88.9 fL (80.0-100.0); Mean Platelet Volume 6.8; Monocytes # (A) 0.8 k/uL (0-1.0); Monocytes % (A) 7 %; Neutrophils # (A) 10.1 k/uL (1.3-7.7); Neutrophils % (A) 85 %; Platelet Count 397 k/uL (150-450); RBC 3.45 m/uL (4.30-5.90); RDW 13.5 % (11.5-15.5); WBC 11.9 k/uL (3.8-10.6)
[2019-10-15 09:27] LABS: African American GFR (CKD) >90 (>60 ml/min/1.73 sqM); Anion Gap 7 mmol/L; Blood Urea Nitrogen 13 mg/dL (9-20); Calcium 8.2 mg/dL (8.4-10.2); Carbon Dioxide 24 mmol/L (22-30); Chloride 98 mmol/L (98-107); Glucose 92 mg/dL (74-99); Non-African American GFR(CKD) 90 (>60 ml/min/1.73 sqM); Potassium 4.2 mmol/L (3.5-5.1); Sodium 129 mmol/L (137-145)
[2019-10-15] MEDS ORDERED: ONDANSETRON 4 MG/2 ML VIAL IVP PRN (14:42)
[2019-10-15] MEDS ORDERED: PANTOPRAZOLE 40 MG TABLET PO STA (14:42)
[2019-10-15] MEDS: KETOROLAC 30 MG/ML 1 ML VIAL IVP SCH ×2 (15:02→21:10)
--- NOTE | 2019-10-15 16:17 | P.GSHP ---
History of Present Illness H&P Date: 10/15/19 CHIEF COMPLAINT: Intra-abdominal abscess HISTORY OF PRESENT ILLNESS: The patient is a 73-year-old male who presents 3 weeks following complicated appendectomy secondary to necrosis of the appendix. He had a drain placed at the time of his index operation on 09/26/2019. He was in the hospital 4 days then discharged with his ISAI drain. He had also been seen by infectious disease team at that time. He was transitioned to oral medications for antibiotics including Augmentin. He had his drain removed at his provider's office within the last 2 weeks. He reports in the last 1 week, he had increased epigastric abdominal pain. He has been taking Advil including Tylenol to control his pain. As of yesterday, his pain became moderate to severe with cramping and increased weakness and fatigue. He presented to the emergency room with worsening symptoms including abdominal cramping and pain. Additional studies including CT of the abdomen and pelvis is consistent with multiple intra-abdominal abscesses, hence his admission. At the time of my assessment, pain management i was adjusted to include Toradol from which he is able to tolerate clear liquid diet. PAST MEDICAL HISTORY: See list. PAST SURGICAL HISTORY: See list. MEDICATIONS: See list. ALLERGIES: See list. SOCIAL HISTORY: See list. FAMILY HISTORY: See list. REVIEW OF ORGAN SYSTEMS: CONSTITUTIONAL: No fevers or chills EYES: Denies any trouble with vision. Wears glasses. HEENT: No difficulties with hearing. No nosebleeds. No difficulty swallowing. RESPIRATORY: Denies pneumonia. Denies any troubles with breathing or dyspnea on exertion. CARDIOVASCULAR: No chest pain, palpitations, or recent heart attacks. GASTROINTESTINAL: No history of blood in stools. GENITOURINARY: Denies any blood in urine or increased urinary frequency. NEUROLOGICAL: Denies any numbness or tingling along the distal extremities. No seizure disorders or headaches. MUSCULOSKELETAL: Has history of joint stiffness and takes Advil regularly SKIN: No current skin cancer. No rash. PSYCHIATRIC: Denies current depression or suicidal thoughts. ENDOCRINE: Denies current thyroid disorders. Denies any blood sugar glucose intolerance. HEME/LYMPHATIC: Denies any lumps and bumps around the neck. No recent deep venous thrombosis. ALLERGY/IMMUNOLOGY: No immunoglobulin therapy. No immune deficiencies. BREAST: Denies current breast lumps, pain or nipple discharge. PHYSICAL EXAM: VITALS: Reviewed CONSTITUTIONAL: Well developed and in no acute distress. EYES: Conjuctivae without sclera icterus. Pupils are equally round and reactive to light. Extraocular movements grossly intact. HEAD, EARS, NOSE, THROAT: Moist buccal mucosa. Head is atraumatic, normocephalic. Hears conversational speech. No nasal drainage. Good dentition. NECK: No JV distention. No thyroidomegaly. RESPIRATORY: Non-labored respirations and equal bilateral excursions. No gross wheezes. CARDIOVASCULAR: Regular rate and rhythm. ABDOMEN: No peritonitis. MUSCULOSKELETAL: Range of motion bilateral upper extremities within normal limits. No clubbing cyanosis or edema. SKIN: Warm and well perfused with good skin turgor. NEUROLOGIC: Cranial nerves II through XII grossly intact. No focal or lateralizing signs. PSYCH: Appropriate affect. Alert and oriented to person, place and time. Displays appropriate insight. CLINCAL LABS: Reviewed. WBC elevated at 12,800. Sodium 128. Creatinine normal 0.79. Coronavirus rapid test negative IMAGING: Independently reviewed with fluid collection along the mid abdomen deep to the anterior abdominal wall largest fluid collection. No evidence of free air. RADIOLOGY: Report reviewed with multiple intra-abdominal abscesses. RECORDS: previous old records reviewed including pathology report and operative report consistent with necrosis of the appendix. ISAI drain noted hospitalization records. ASSESSMENT: 1. Intra-abdominal abscess 2. History of complicated appendicitis PLAN: 1. He has intolerance to morphine and is on Toradol for management of his pain 2. Recommend evaluation for interventional radiology drainage for largest fluid collection including cultures were not available upon last hospitalization 3. Infectious disease consultation for complicated intra-abdominal abscesses 4. DVT prophylaxis with bilateral SCDs 5. GI prophylaxis for chronic NSAID use 6. Incentive spirometer Thank you for this kind consultation. Past Medical History Past Medical History: Hyperlipidemia, Hypertension, Myocardial Infarction (NE), Osteoarthritis (OA), Prostate Disorder Additional Past Medical History / Comment(s): NE Last Myocardial Infarction Date:: History of Any Multi-Drug Resistant Organisms: None Reported Past Surgical History: Adenoidectomy, Appendectomy, Heart Catheterization, Orthopedic Surgery, Tonsillectomy Additional Past Surgical History / Comment(s): heart cath 1991; carpal tunnel s urgery; vasectomy, appemdectomy 09/2019 Past Anesthesia/Blood Transfusion Reactions: No Reported Reaction Past Psychological History: No Psychological Hx Reported Smoking Status: Never smoker Past Alcohol Use History: Daily Past Drug Use History: None Reported Medications and Allergies Home Medications Medication Instructions Recorded Confirmed Type Aspirin EC [Ecotrin Low Dose] 81 mg PO Q48H 09/26/19 10/15/19 History Losartan [Cozaar] 25 mg PO HS 09/26/19 10/15/19 History Magnesium 200 mg PO Q48H 09/26/19 10/15/19 History [place]-3 Fatty Acids/Fish Oil [Fish 1 cap PO Q48H 09/26/19 10/15/19 History Oil 1,000 mg Softgel] Potassium Gluconate 99 mg PO Q48H 09/26/19 10/15/19 History Ubidecarenone [Co Q-10] 100 mg PO Q48H 09/26/19 10/15/19 History Ascorbic Acid [Vitamin C] 500 mg PO Q48H 10/15/19 10/15/19 History Saw [place] 500 mg PO Q48H 10/15/19 10/15/19 History Allergies Allergy/AdvReac Type Severity Reaction Status Date / Time morphine Allergy Itching Verified 10/15/19 07:23 Surgical - Exam Vital Signs Temp Pulse Resp BP Pulse Ox 98.7 F 68 20 161/99 98 10/15/19 03:07 10/15/19 03:07 10/15/19 03:07 10/15/19 03:07 10/15/19 03:07 Results - Labs 10/15/19 08:50 10/15/19 08:50 Abnormal Lab Results - Last 24 Hours (Table) 10/15/19 10/15/19 10/15/19 Range/Units 01:06 03:56 03:56 WBC 12.8 H (3.8-10.6) k/uL RBC 3.73 L (4.30-5.90) m/uL Hgb 11.2 L (13.0-17.5) gm/dL Hct 34.3 L (39.0-53.0) % Plt Count 458 H (150-450) k/uL Neutrophils # 10.7 H (1.3-7.7) k/uL Lymphocytes # 0.8 L (1.0-4.8) k/uL Sodium 128 L (137-145) mmol/L Chloride 94 L (98-107) mmol/L Glucose 106 H (74-99) mg/dL Calcium (8.4-10.2) mg/dL AST 85 H (17-59) U/L ALT 122 H (4-49) U/L Alkaline Phosphatase 452 H (38-126) U/L Total Protein 6.1 L (6.3-8.2) g/dL Albumin 3.0 L (3.5-5.0) g/dL Urine Protein Trace H (Negative) Urine Blood Small H (Negative) Urine Mucus Occasional H (None) /hpf 10/15/19 10/15/19 Range/Units 08:50 08:50 WBC 11.9 H (3.8-10.6) k/uL RBC 3.45 L (4.30-5.90) m/uL Hgb 10.5 L (13.0-17.5) gm/dL Hct 30.7 L (39.0-53.0) % Plt Count (150-450) k/uL Neutrophils # 10.1 H (1.3-7.7) k/uL Lymphocytes # 0.8 L (1.0-4.8) k/uL Sodium 129 L (137-145) mmol/L Chloride (98-107) mmol/L Glucose (74-99) mg/dL Calcium 8.2 L (8.4-10.2) mg/dL AST (17-59) U/L ALT (4-49) U/L Alkaline Phosphatase (38-126) U/L Total Protein (6.3-8.2) g/dL Albumin (3.5-5.0) g/dL Urine Protein (Negative) Urine Blood (Negative) Urine Mucus (None) /hpf Diabetes panel 10/15/19 10/15/19 Range/Units 03:56 08:50 Sodium 128 L 129 L (137-145) mmol/L Potassium 4.2 4.2 (3.5-5.1) mmol/L Chloride 94 L 98 (98-107) mmol/L Carbon Dioxide 26 24 (22-30) mmol/L BUN 14 13 (9-20) mg/dL Creatinine 0.79 0.78 (0.66-1.25) mg/dL Glucose 106 H 92 (74-99) mg/dL Calcium 8.5 8.2 L (8.4-10.2) mg/dL AST 85 H (17-59) U/L ALT 122 H (4-49) U/L Alkaline Phosphatase 452 H (38-126) U/L Total Protein 6.1 L (6.3-8.2) g/dL Albumin 3.0 L (3.5-5.0) g/dL Calcium panel 10/15/19 10/15/19 Range/Units 03:56 08:50 Calcium 8.5 8.2 L (8.4-10.2) mg/dL Albumin 3.0 L (3.5-5.0) g/dL Pituitary panel 10/15/19 10/15/19 Range/Units 03:56 08:50 Sodium 128 L 129 L (137-145) mmol/L Potassium 4.2 4.2 (3.5-5.1) mmol/L Chloride 94 L 98 (98-107) mmol/L Carbon Dioxide 26 24 (22-30) mmol/L BUN 14 13 (9-20) mg/dL Creatinine 0.79 0.78 (0.66-1.25) mg/dL Glucose 106 H 92 (74-99) mg/dL Calcium 8.5 8.2 L (8.4-10.2) mg/dL Adrenal panel 10/15/19 10/15/19 Range/Units 03:56 08:50 Sodium 128 L 129 L (137-145) mmol/L Potassium 4.2 4.2 (3.5-5.1) mmol/L Chloride 94 L 98 (98-107) mmol/L Carbon Dioxide 26 24 (22-30) mmol/L BUN 14 13 (9-20) mg/dL Creatinine 0.79 0.78 (0.66-1.25) mg/dL Glucose 106 H 92 (74-99) mg/dL Calcium 8.5 8.2 L (8.4-10.2) mg/dL Total Bilirubin 0.9 (0.2-1.3) mg/dL AST 85 H (17-59) U/L ALT 122 H (4-49) U/L Alkaline Phosphatase 452 H (38-126) U/L Total Protein 6.1 L (6.3-8.2) g/dL Albumin 3.0 L (3.5-5.0) g/dL Assessment and Plan (1) Intra-abdominal abscess Current Visit: Yes Status: Acute Code(s): K65.1 - PERITONEAL ABSCESS SNOMED Code(s): 30881164 (2) Intra-abdominal abscess post-procedure Current Visit: Yes Status: Acute Code(s): T81.43XA - INFCT FOL A PROCEDURE, ORGAN AND SPACE SURGICAL SITE, INIT SNOMED Code(s): 4595853 (3) S/P appendectomy Current Visit: Yes Status: Acute Code(s): Z90.49 - ACQUIRED ABSENCE OF OTHER SPECIFIED PARTS OF DIGESTIVE TRACT SNOMED Code(s): 560051603
--- NOTE | 2019-10-15 18:18 | P.CONS ---
History of Present Illness - Reason for Consult Consult date: 10/15/19 (Delayed charting seen at 1400) HTN Requesting physician: Maya Branch - Chief Complaint abdominal pain - History of Present Illness Patient is a 73-year-old male with past medical history of coronary artery disease, hypertension, dyslipidemia, and arthritis who presented to the ER with complaints of abdominal pain. He was subsequently found to have intra- abdominal abscesses the largest of which is 9 cm. Of note patient was recently hospitalized here from 09/25 through 09/29 secondary to ruptured appendix with peritonitis and sepsis. Patient seen and examined at bedside. He reports that he was discharged home 3 weeks ago and has been slowly progressing. Initially he was having decreased appetite, abdominal pain, and severe constipation. These all seemed to start improving approximately 3-4 days ago. Last evening he had an abrupt increase in his abdominal pain, nausea, vomiting, and decreased appetite and he came to the emergency department. He does report that he has lost approximately 15-20 pounds from his normal weight after surgery. He also was not eating and drinking much when he originally went home. He complains of overall just fatigue and feeling worn out. Review of Systems Pertinent positives and negatives as discussed in HPI, a complete review of systems was performed and all other systems are negative. Past Medical History Past Medical History: Coronary Artery Disease (CAD), Hyperlipidemia, Hypertension, Osteoarthritis (OA), Prostate Disorder Additional Past Medical History / Comment(s): BPH Last Myocardial Infarction Date:: History of Any Multi-Drug Resistant Organisms: None Reported Past Surgical History: Adenoidectomy, Appendectomy, Heart Catheterization, Orthopedic Surgery, Tonsillectomy Additional Past Surgical History / Comment(s): heart cath 1991; carpal tunnel surgery; vasectomy, appendectomy, cubital tunnel release, herniorrhaphy Past Anesthesia/Blood Transfusion Reactions: No Reported Reaction Past Psychological History: No Psychological Hx Reported Smoking Status: Never smoker Past Alcohol Use History: Daily Past Drug Use History: None Reported Additional History: Has not drank in the last 3 weeks, does not use a cane or walker at home. - Past Family History Mother Additional Family Medical History / Comment(s): No significant family history of colon cancer Medications and Allergies Home Medications Medication Instructions Recorded Confirmed Type Aspirin EC [Ecotrin Low Dose] 81 mg PO Q48H 09/26/19 10/15/19 History Losartan [Cozaar] 25 mg PO HS 09/26/19 10/15/19 History Magnesium 200 mg PO Q48H 09/26/19 10/15/19 History [place]-3 Fatty Acids/Fish Oil [Fish 1 cap PO Q48H 09/26/19 10/15/19 History Oil 1,000 mg Softgel] Potassium Gluconate 99 mg PO Q48H 09/26/19 10/15/19 History Ubidecarenone [Co Q-10] 100 mg PO Q48H 09/26/19 10/15/19 History Ascorbic Acid [Vitamin C] 500 mg PO Q48H 10/15/19 10/15/19 History Saw [place] 500 mg PO Q48H 10/15/19 10/15/19 History Allergies Allergy/AdvReac Type Severity Reaction Status Date / Time morphine Allergy Itching Verified 10/15/19 07:23 Physical Exam Osteopathic Statement: *. No significant issues noted on an osteopathic structural exam other than those noted in the History and Physical/Consult. Vitals: Vital Signs Temp Pulse Pulse Resp BP BP Pulse Ox 10/15/19 15:00 98.5 F 72 17 125/70 97 10/15/19 07:00 98.9 F 97 17 130/74 97 10/15/19 06:18 80 18 134/77 98 10/15/19 03:07 98.7 F 68 20 161/99 98 Intake and Output 10/15/19 10/15/19 10/15/19 06:59 14:59 22:59 Other: # Voids 3 3 Weight 80.649 kg 80.649 kg General: non toxic, no distress, appears at stated age, normal weight Derm: no unusual rashes/lesions no unusual ecchymoses, warm, dry Head: atraumatic, normocephalic, symmetric Eyes: EOMI, no lid lag, anicteric sclera, pupils equal round reactive to light ENT: Nose and ears atraumatic, no thrush, no pharyngeal erythema Neck: No thyromegaly, no cervical lymphadenopathy, trachea midline, supple Mouth: no lip lesion, mucus membranes dry Cardiovascular: S1S2 reg, no murmur, positive posterior tibial pulse bilateral, no edema, capillary refill less than 2 seconds Lungs: CTA bilateral, no rhonchi, no rales , no accessory muscle use Abdominal: soft, nontender to palpation, no guarding, no appreciable organomegaly, normal bowel sounds, supple mass just above the bladder nontender to palpation Ext: no gross muscle atrophy, muscle strength 5 out of 5 in all 4 extremities grossly, no contractures, Neuro: CN II-XI grossly intact, light touch intact all 4 extremities, finger to nose within normal limits, Psych: Alert, oriented, appropriate affect Results CBC & Chem 7: 10/15/19 08:50 10/15/19 08:50 Labs: Abnormal Lab Results - Last 24 Hours (Table) 10/15/19 10/15/19 10/15/19 Range/Units 01:06 03:56 03:56 WBC 12.8 H (3.8-10.6) k/uL RBC 3.73 L (4.30-5.90) m/uL Hgb 11.2 L (13.0-17.5) gm/dL Hct 34.3 L (39.0-53.0) % Plt Count 458 H (150-450) k/uL Neutrophils # 10.7 H (1.3-7.7) k/uL Lymphocytes # 0.8 L (1.0-4.8) k/uL Sodium 128 L (137-145) mmol/L Chloride 94 L (98-107) mmol/L Glucose 106 H (74-99) mg/dL Calcium (8.4-10.2) mg/dL AST 85 H (17-59) U/L ALT 122 H (4-49) U/L Alkaline Phosphatase 452 H (38-126) U/L Total Protein 6.1 L (6.3-8.2) g/dL Albumin 3.0 L (3.5-5.0) g/dL Urine Protein Trace H (Negative) Urine Blood Small H (Negative) Urine Mucus Occasional H (None) /hpf 10/15/19 10/15/19 Range/Units 08:50 08:50 WBC 11.9 H (3.8-10.6) k/uL RBC 3.45 L (4.30-5.90) m/uL Hgb 10.5 L (13.0-17.5) gm/dL Hct 30.7 L (39.0-53.0) % Plt Count (150-450) k/uL Neutrophils # 10.1 H (1.3-7.7) k/uL Lymphocytes # 0.8 L (1.0-4.8) k/uL Sodium 129 L (137-145) mmol/L Chloride (98-107) mmol/L Glucose (74-99) mg/dL Calcium 8.2 L (8.4-10.2) mg/dL AST (17-59) U/L ALT (4-49) U/L Alkaline Phosphatase (38-126) U/L Total Protein (6.3-8.2) g/dL Albumin (3.5-5.0) g/dL Urine Protein (Negative) Urine Blood (Negative) Urine Mucus (None) /hpf CT scan - abdomen: report reviewed CT scan - pelvis: report reviewed Assessment and Plan Assessment: Intra-abdominal abscess with history of recent ruptured appendicitis -Continue with Zosyn -Surgery recommendations -Consult ID -Pain control -Antiemetics -Await interventional radiology recommendations. Suggest for culture and obtaining specimen. Hyponatremia, euvolemic -Check urine sodium and osmoles -Possible SIADH -Not on any diuretic therapy -Could be secondary to low solute intake Acute blood loss anemia secondary to recent surgical procedure -No indications for transfusion at this time -Follow CBC Transaminitis -Suspect reactive or medication induced -Repeat in a.m. -If continues to elevate hepatitis testing and liver ultrasound Hypertension, controlled -Cozaar on hold as patient is normotensive without this -Follow blood pressures Chronic: Dyslipidemia Osteoarthritis BPH Thank you for allowing us to participate in the care of this pleasant patient. Do not hesitate to contact us with questions. Someone can be reached from the [facility] hospitalist group all hours of the day at [phone] or via [email or web address] [email or web address].
[2019-10-15] MEDS: LOSARTAN 25 MG TAB PO SCH (21:10)
--- NOTE | 2019-10-15 23:43 | P.CONS ---
History of Present Illness - Reason for Consult Consult date: 10/15/19 intra-abdominal abscess Requesting physician: Maya Branch - Chief Complaint abd. pain x few days - History of Present Illness Patient is 73-year-old male who was recently admitted this facility patient was diagnosed with acute gangrenous appendicitis status post laparoscopic appendectomy patient was treated with IV Unasyn and after stabilization discharged home on oral Augmentin x10-day with the patient has taken patient is now coming back to the hospital with chief complaints of abdominal pain for the last 4 days pain has been mostly lower abdominal area describing to be colicky at times dull aching intensity 5-6 out of 10 no radiation patient also having vomiting but denies any diarrhea patient denies high-grade fever or chills with the symptom the patient was evaluated by the ER physician on arrival to the ER patient was afebrile patient did have a white count of 12.8 levels is mildly elevated urine was negative colitis PCR was negative patient did have a CT of abdominal pelvis which did shows multiple irregular thick-walled fluid collection lower abdominal pelvis consistent with multiple abscesses patient has been started on Zosyn admitted to hospital infectious was consulted for further recommendation regarding antibiotic therapy blood culture has been sent which are currently pending. Review of Systems Positive point has been mentioned in HPI rest of the systems are negative Past Medical History Past Medical History: Coronary Artery Disease (CAD), Hyperlipidemia, Hypertension, Osteoarthritis (OA), Prostate Disorder Additional Past Medical History / Comment(s): BPH Last Myocardial Infarction Date:: History of Any Multi-Drug Resistant Organisms: None Reported Past Surgical History: Adenoidectomy, Appendectomy, Heart Catheterization, Orthopedic Surgery, Tonsillectomy Additional Past Surgical History / Comment(s): heart cath 1991; carpal tunnel surgery; vasectomy, appendectomy, cubital tunnel release, herniorrhaphy Past Anesthesia/Blood Transfusion Reactions: No Reported Reaction Past Psychological History: No Psychological Hx Reported Smoking Status: Never smoker Past Alcohol Use History: Daily Past Drug Use History: None Reported - Past Family History Mother Additional Family Medical History / Comment(s): No significant family history of colon cancer Medications and Allergies Home Medications Medication Instructions Recorded Confirmed Type Aspirin EC [Ecotrin Low Dose] 81 mg PO Q48H 09/26/19 10/15/19 History Losartan [Cozaar] 25 mg PO HS 09/26/19 10/15/19 History Magnesium 200 mg PO Q48H 09/26/19 10/15/19 History [place]-3 Fatty Acids/Fish Oil [Fish 1 cap PO Q48H 09/26/19 10/15/19 History Oil 1,000 mg Softgel] Potassium Gluconate 99 mg PO Q48H 09/26/19 10/15/19 History Ubidecarenone [Co Q-10] 100 mg PO Q48H 09/26/19 10/15/19 History Ascorbic Acid [Vitamin C] 500 mg PO Q48H 10/15/19 10/15/19 History Saw [place] 500 mg PO Q48H 10/15/19 10/15/19 History Allergies Allergy/AdvReac Type Severity Reaction Status Date / Time morphine Allergy Itching Verified 10/15/19 07:23 Physical Exam Vitals: Vital Signs Temp Pulse Pulse Resp BP BP Pulse Ox 10/15/19 20:00 82 17 10/15/19 19:15 98.1 F 82 152/79 99 10/15/19 15:00 98.5 F 72 17 125/70 97 10/15/19 07:00 98.9 F 97 17 130/74 97 10/15/19 06:18 80 18 134/77 98 10/15/19 03:07 98.7 F 68 20 161/99 98 Intake and Output 10/15/19 10/15/19 10/16/19 14:59 22:59 06:59 Intake Total 700 Balance 700 Intake: Intake, IV Titration 700 Amount Piperacillin-Tazobactam 3 100 .375 gm In Sodium Chloride 0.9% 100 ml @ 25 mls/hr IVPB Q8HR MARIA D Rx# :[id number] Sodium Chloride 0.9% 1, 600 000 ml @ 75 mls/hr IV . [id number] MARIA D Rx#:[id number] Other: Voiding Method Toilet # Voids 3 1 Weight 80.649 kg GENERAL DESCRIPTION: Elderly male lying in bed, no distress. No tachypnea or accessory muscle of respiration use. HEENT: Shows Pallor , no scleral icterus. Oral mucous membrane is dry. NECK: Trachea central, no thyromegaly. LUNGS: Unlabored breathing. Clear to auscultation anteriorly. No wheeze or crackle. HEART: S1, S2, regular rate and rhythm. ABDOMEN: Soft, mild lower abdominal tenderness ,no guarding or rigidity EXTREMITIES: No edema of feet. SKIN: No rash, no masses palpable. NEUROLOGICAL: The patient is awake, alert, oriented x3, mood and affect normal. Results CBC & Chem 7: 10/15/19 08:50 10/15/19 08:50 Labs: Abnormal Lab Results - Last 24 Hours (Table) 10/15/19 10/15/19 10/15/19 Range/Units 01:06 03:56 03:56 WBC 12.8 H (3.8-10.6) k/uL RBC 3.73 L (4.30-5.90) m/uL Hgb 11.2 L (13.0-17.5) gm/dL Hct 34.3 L (39.0-53.0) % Plt Count 458 H (150-450) k/uL Neutrophils # 10.7 H (1.3-7.7) k/uL Lymphocytes # 0.8 L (1.0-4.8) k/uL Sodium 128 L (137-145) mmol/L Chloride 94 L (98-107) mmol/L Glucose 106 H (74-99) mg/dL Calcium (8.4-10.2) mg/dL AST 85 H (17-59) U/L ALT 122 H (4-49) U/L Alkaline Phosphatase 452 H (38-126) U/L Total Protein 6.1 L (6.3-8.2) g/dL Albumin 3.0 L (3.5-5.0) g/dL Urine Protein Trace H (Negative) Urine Blood Small H (Negative) Urine Mucus Occasional H (None) /hpf 10/15/19 10/15/19 Range/Units 08:50 08:50 WBC 11.9 H (3.8-10.6) k/uL RBC 3.45 L (4.30-5.90) m/uL Hgb 10.5 L (13.0-17.5) gm/dL Hct 30.7 L (39.0-53.0) % Plt Count (150-450) k/uL Neutrophils # 10.1 H (1.3-7.7) k/uL Lymphocytes # 0.8 L (1.0-4.8) k/uL Sodium 129 L (137-145) mmol/L Chloride (98-107) mmol/L Glucose (74-99) mg/dL Calcium 8.2 L (8.4-10.2) mg/dL AST (17-59) U/L ALT (4-49) U/L Alkaline Phosphatase (38-126) U/L Total Protein (6.3-8.2) g/dL Albumin (3.5-5.0) g/dL Urine Protein (Negative) Urine Blood (Negative) Urine Mucus (None) /hpf Assessment and Plan Assessment: -patient presented to hospital with abdominal pain and vomiting in this patient who recently did have a laparoscopic appendectomy for gangrenous appendicitis this patient recently completed a course of oral Augmentin likely failing of the oral antibiotic therapy and will need to call for resistant gram-negative both aerobes and anaerobes (1) Intra-abdominal abscess Current Visit: Yes Status: Acute Code(s): K65.1 - PERITONEAL ABSCESS SNOMED Code(s): 38892677 Plan: 1-await possible CT-guided drainage of this abscess fluid should be sent for Gram stain and culture 2-Zosyn 3.375 g every 8 hour 3-gentle IV fluid We will follow on clinical condition and cultures to further adjust medication if needed Thank you for this consultation we will follow the patient along with you Time with Patient: Greater than 30
[2019-10-16] MEDS: KETOROLAC 30 MG/ML 1 ML VIAL IVP SCH ×4 (02:11→21:05)
[2019-10-16] MEDS: SODIUM CHLORIDE 0.9% 1,000 ML IV SCH ×3 (05:21→22:25)
[2019-10-16 06:59] LABS: HGB 10.3 gm/dL (13.0-17.5); MCH 30.2 pg (25.0-35.0); MCHC 33.3 g/dL (31.0-37.0); MCV 90.8 fL (80.0-100.0); Mean Platelet Volume 6.4; Platelet Count 384 k/uL (150-450); RBC 3.42 m/uL (4.30-5.90); RDW 13.4 % (11.5-15.5); WBC 8.9 k/uL (3.8-10.6)
[2019-10-16 07:04] LABS: ALT 89 U/L (4-49); AST 60 U/L (17-59); African American GFR (CKD) >90 (>60 ml/min/1.73 sqM); Albumin 2.5 g/dL (3.5-5.0); Alkaline Phosphatase 360 U/L (38-126); Anion Gap 8 mmol/L; Blood Urea Nitrogen 13 mg/dL (9-20); Carbon Dioxide 23 mmol/L (22-30); Chloride 99 mmol/L (98-107); Glucose 83 mg/dL (74-99); Non-African American GFR(CKD) 85 (>60 ml/min/1.73 sqM); Phosphorus 4.1 mg/dL (2.5-4.5); Potassium 4.4 mmol/L (3.5-5.1); Sodium 130 mmol/L (137-145); Total Bilirubin 0.8 mg/dL (0.2-1.3); Total Protein 5.3 g/dL (6.3-8.2)
[2019-10-16] MEDS: PANTOPRAZOLE 40 MG TABLET PO SCH (07:35)
[2019-10-16] MEDS: PIPERACILLIN-TAZOBACTAM 3.375 GM in SODIUM CHLORIDE 0.9% 100 ML IVPB SCH ×3 (08:07→23:46)
[2019-10-16] MEDS ORDERED: POLYETHYLENE GLYCOL 3350 17 GM POWD.PACK PO PRN (09:54)
--- NOTE | 2019-10-16 09:56 | P.PN ---
Subjective Progress Note Date: 10/16/19 CHIEF COMPLAINT: Intra-abdominal abscess HISTORY OF PRESENT ILLNESS: The patient is a 73-year-old male who presents with multiple intra-abdominal abscesses following previous laparoscopic appendectomy 3 weeks ago for gangrenous appendicitis. His pain is more controlled today. No fevers or chills. He had been seen by infectious disease providers as well. Reports having bowel movement last night and this morning. REVIEW OF ORGAN SYSTEMS: No fevers or chills. Had a bowel movement today and last night. No chest pain. No productive sputum. PHYSICAL EXAM: VITALS: Reviewed CONSTITUTIONAL: Well developed and in no acute distress. EYES: Conjuctivae without sclera icterus. Pupils are equally round and reactive to light. Extraocular movements grossly intact. HEAD, EARS, NOSE, THROAT: Moist buccal mucosa. Head is atraumatic, normocephalic. Hears conversational speech. No nasal drainage. NECK: No JV distention. No thyroidomegaly. RESPIRATORY: Non-labored respirations and equal bilateral excursions. No gross wheezes. CARDIOVASCULAR: Regular rate and rhythm. ABDOMEN: No peritonitis. Nondistended. MUSCULOSKELETAL: Range of motion bilateral upper extremities within normal limits. No clubbing cyanosis or edema. SKIN: Warm and well perfused with good skin turgor. NEUROLOGIC: Cranial nerves II through XII grossly intact. No focal or lateralizing signs. PSYCH: Appropriate affect. Alert and oriented to person, place and time. Displays appropriate insight. CLINCAL LABS: Reviewed. WBC elevated at 12,800 upon admission now down to normal 8600. Sodium 128. Creatinine normal 0.79. Coronavirus rapid test negative ASSESSMENT: 1. Intra-abdominal abscess 2. History of complicated appendicitis 3. Hyponatremia, present on admission 4. Elevated LFTs, present on admission PLAN: 1. I personally spoke to interventional radiology team for which additional recommendations are forthcoming. 2. Will need tailored antibiotic therapy pending results of cultures. 3. Inpatient hospitalization more than 2 nights described which will also be dependent on growth from cultures to tailor antibiotic management Objective - Vital Signs Vital signs: Vital Signs Temp 99.0 F 10/16/19 07:00 Pulse 81 10/16/19 08:07 Resp 16 10/16/19 08:07 BP 149/73 10/16/19 07:00 Pulse Ox 97 10/16/19 07:00 Intake & Output 10/15/19 10/16/19 10/16/19 18:59 06:59 18:59 Intake Total 1400 Balance 1400 Weight 80.649 kg Intake: Intake, IV Titration 1400 Amount Piperacillin-Tazobactam 3 200 .375 gm In Sodium Chloride 0.9% 100 ml @ 25 mls/hr IVPB Q8HR [facility] Rx# :[id number] Sodium Chloride 0.9% 1, 1200 000 ml @ 75 mls/hr IV . [id number] [facility] Rx#:[id number] Other: Voiding Method Toilet Toilet # Voids 3 1 - Labs CBC & Chem 7: 10/16/19 06:42 10/16/19 06:42 Labs: Abnormal Lab Results - Last 24 Hours (Table) 10/16/19 10/16/19 Range/Units 06:42 06:42 RBC 3.42 L (4.30-5.90) m/uL Hgb 10.3 L (13.0-17.5) gm/dL Hct 31.0 L (39.0-53.0) % Sodium 130 L (137-145) mmol/L Osmolality 269 L (280-301) mosm/kg Calcium 8.0 L (8.4-10.2) mg/dL AST 60 H (17-59) U/L ALT 89 H (4-49) U/L Alkaline Phosphatase 360 H (38-126) U/L Total Protein 5.3 L (6.3-8.2) g/dL Albumin 2.5 L (3.5-5.0) g/dL Microbiology - Last 24 Hours (Table) 10/15/19 05:48 Blood Culture - Preliminary Blood No Growth after 24 hours Assessment and Plan (1) Intra-abdominal abscess Current Visit: Yes Status: Acute Code(s): K65.1 - PERITONEAL ABSCESS SNOMED Code(s): 41906227 (2) Intra-abdominal abscess post-procedure Current Visit: Yes Status: Acute Code(s): T81.43XA - INFCT FOL A PROCEDURE, ORGAN AND SPACE SURGICAL SITE, INIT SNOMED Code(s): 6981461 (3) S/P appendectomy Current Visit: Yes Status: Acute Code(s): Z90.49 - ACQUIRED ABSENCE OF OTHER SPECIFIED PARTS OF DIGESTIVE TRACT SNOMED Code(s): 305473049 (4) Hyponatremia Current Visit: Yes Status: Acute Code(s): E87.1 - HYPO-OSMOLALITY AND HYPONATREMIA SNOMED Code(s): 75707504 (5) Elevated LFTs Current Visit: Yes Status: Acute Code(s): R79.89 - OTHER SPECIFIED ABNORMAL FINDINGS OF BLOOD CHEMISTRY SNOMED Code(s): 996653089
--- NOTE | 2019-10-16 13:13 | CT ---
EXAMINATION TYPE: CT guided abscess drainage DATE OF EXAM: 10/16/2019 COMPARISON: 10/15/2019 HISTORY: RLQ abscess drainage CT DLP: 1032 mGycm The procedure is discussed with the patient, the risks, complications, benefits and alternatives, wer e discussed and any questions were answered. Informed consent was obtained. The patient is placed s upine on the CT table, prepped and draped in the usual sterile fashion. Utilizing a 22-gauge Chiba needle access into abdominal fluid collection was obtained and repeat imag ing demonstrated ideal placement of the needle. A 0.018 wire was placed through the needle and there is conversion to an O.035 system. Subsequent serial dilation to 8.5 Chinese and placement of an 8.5 Fr ench drainage catheter. Repeat imaging demonstrated ideal placement catheter. A sample was obtained a nd sent to pathology for analysis. All elements of maximal barrier and sterile technique were utilize d. The patient remained stable throughout the procedure with no immediate postprocedural complicatio n. IMPRESSION: 1. Successful CT guided drainage catheter insertion within the abdominal fluid collection. Patholog y pending
[2019-10-16] MEDS: ZINC SULFATE 220 MG CAP PO SCH (13:47)
--- NOTE | 2019-10-16 17:32 | P.PN ---
Subjective Progress Note Date: 10/16/19 (delayed charting seen at 1030) Principal diagnosis: abdominal pain Patient is a 73-year-old male with past medical history of coronary artery disease, hypertension, dyslipidemia, and arthritis who presented to the ER with complaints of abdominal pain. He was subsequently found to have intra- abdominal abscesses the largest of which is 9 cm. Of note patient was recently hospitalized here from 09/25 through 09/29 secondary to ruptured appendix with peritonitis and sepsis. Plan is for CT guided drainage was interventional radiology. Patient seen and examined at bedside. He denies any abdominal pain, nausea, or vomiting. Feeling hungry. Still having a lot of paced in his mouth. He is still feeling very tired and fatigued overall. Objective - Vital Signs Vital signs: Vital Signs Temp 98.3 F 10/16/19 15:00 Pulse 79 10/16/19 15:00 Resp 18 10/16/19 15:00 BP 168/82 10/16/19 15:00 Pulse Ox 99 10/16/19 15:00 Intake & Output 10/15/19 10/16/19 10/16/19 18:59 06:59 18:59 Intake Total 1400 625 Balance 1400 625 Weight 80.649 kg Intake: Intake, IV Titration 1400 625 Amount Piperacillin-Tazobactam 3 200 100 .375 gm In Sodium Chloride 0.9% 100 ml @ 25 mls/hr IVPB Q8HR [facility] Rx# :[id number] Sodium Chloride 0.9% 1, 1200 525 000 ml @ 75 mls/hr IV . [id number] [facility] Rx#:[id number] Other: Voiding Method Toilet Toilet # Voids 3 1 - Exam General: ill appearing, no distress, appears at stated age Derm: warm, dry Head: atraumatic, normocephalic, symmetric Eyes: EOMI, no lid lag, anicteric sclera Mouth: no lip lesion, mucus membranes moist Cardiovascular: S1S2 reg, no murmur, positive posterior tibial pulse bilateral, Lungs: CTA bilateral, no rhonchi, no rales , no accessory muscle use Abdominal: soft, nontender to palpation, no guarding, no appreciable organomegaly, palpable mass suprapubic not tender to palpation. Ext: no gross muscle atrophy, no edema, no contractures Neuro: CN II-XI grossly intact, no focal neuro deficits Psych: Alert, oriented, appropriate affect - Labs CBC & Chem 7: 10/16/19 06:42 10/16/19 06:42 Labs: Abnormal Lab Results - Last 24 Hours (Table) 10/16/19 10/16/19 Range/Units 06:42 06:42 RBC 3.42 L (4.30-5.90) m/uL Hgb 10.3 L (13.0-17.5) gm/dL Hct 31.0 L (39.0-53.0) % Sodium 130 L (137-145) mmol/L Osmolality 269 L (280-301) mosm/kg Calcium 8.0 L (8.4-10.2) mg/dL AST 60 H (17-59) U/L ALT 89 H (4-49) U/L Alkaline Phosphatase 360 H (38-126) U/L Total Protein 5.3 L (6.3-8.2) g/dL Albumin 2.5 L (3.5-5.0) g/dL Microbiology - Last 24 Hours (Table) 10/15/19 05:48 Blood Culture - Preliminary Blood No Growth after 24 hours Assessment and Plan Assessment: Intra-abdominal abscess with history of recent ruptured appendicitis -Continue with Zosyn, IR to reform drainage 10/15 wt cultures -Surgery recommendations -ID recs appreciated -Pain control -Antiemetics Hyponatremia, 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 -Not on any diuretic therapy -follow sodium Acute blood loss anemia secondary to recent surgical procedure -No indications for transfusion at this time -Follow CBC - iron supplementation on discharge Transaminitis -Suspect reactive or medication induced -Repeat in a.m. Hypertension, controlled -cozaar -Follow blood pressures Chronic: Dyslipidemia Osteoarthritis BPH DVT prophylaxis: SCDs
[2019-10-16] MEDS: LOSARTAN 25 MG TAB PO SCH (21:04)
[2019-10-16] MEDS: MELATONIN 5 MG TABLET PO PRN (21:17)
--- NOTE | 2019-10-16 22:27 | PN ---
PROGRESS NOTE DATE OF SERVICE: 10/16/2019 REASON FOR FOLLOWUP: Possible abdominal abscess. INTERVAL HISTORY: The patient is currently afebrile. The patient was taken this morning to have CT- guided drainage of the abdominal collection, noted to be mostly hematoma. No purulence was noticed. The patient tolerated the procedure. Pain is currently controlled. Denies having any chest pain or shortness of breath or cough. PHYSICAL EXAMINATION: Blood pressure 143/71 with a pulse of 77, temperature 99. He is 98% on room air. General description is an elderly male lying in bed in no distress. RESPIRATORY SYSTEM: Unlabored breathing. Clear to auscultation anteriorly. HEART: S1, S2. Regular rate and rhythm. ABDOMEN: Soft. No tenderness. LABS: Hemoglobin is 10.3, white count 8.9, BUN of 13, creatinine 0.89. DIAGNOSTIC IMPRESSION AND PLAN: Patient admitted to hospital with abdominal pain with concern about possible abscesses. However, the patient is status post CT-guided aspirate with evidence of possible hematoma. Will wait for the culture to finalize, keep the patient on Zosyn and monitor his clinical course closely. Continue with supportive care. MMODL / IJN: [id number] /
[2019-10-17] MEDS: KETOROLAC 30 MG/ML 1 ML VIAL IVP SCH ×4 (03:09→21:00)
[2019-10-17 07:12] LABS: HCT 30.7 % (39.0-53.0); HGB 9.8 gm/dL (13.0-17.5); MCH 29.6 pg (25.0-35.0); MCHC 32.1 g/dL (31.0-37.0); MCV 92.2 fL (80.0-100.0); Mean Platelet Volume 6.4; Platelet Count 352 k/uL (150-450); RBC 3.33 m/uL (4.30-5.90); RDW 13.3 % (11.5-15.5); WBC 8.3 k/uL (3.8-10.6)
[2019-10-17 07:40] LABS: African American GFR (CKD) >90 (>60 ml/min/1.73 sqM); Anion Gap 7 mmol/L; Blood Urea Nitrogen 14 mg/dL (9-20); Carbon Dioxide 23 mmol/L (22-30); Chloride 99 mmol/L (98-107); Glucose 73 mg/dL (74-99); Non-African American GFR(CKD) 88 (>60 ml/min/1.73 sqM); Potassium 4.3 mmol/L (3.5-5.1); Sodium 129 mmol/L (137-145)
[2019-10-17] MEDS: PIPERACILLIN-TAZOBACTAM 3.375 GM in SODIUM CHLORIDE 0.9% 100 ML IVPB SCH ×3 (08:49→23:53)
[2019-10-17] MEDS: ZINC SULFATE 220 MG CAP PO SCH (08:50)
[2019-10-17] MEDS: PANTOPRAZOLE 40 MG TABLET PO SCH (08:50)
[2019-10-17] MEDS: SODIUM CHLORIDE 0.9% 1,000 ML IV SCH ×2 (08:50→23:55)
--- NOTE | 2019-10-17 10:04 | P.PN ---
<Leesa Burris - Last Filed: 10/17/19 10:06> Subjective Progress Note Date: 10/17/19 CHIEF COMPLAINT: intra-abdominal abscess HISTORY OF PRESENT ILLNESS: patient examined at the bedside with Dr. Branch. Patient underwent drainage catheter tube insertion by interventional radiology yesterday. Patient with small amount of drainage in tubing this morning. Reports abdominal pain is tolerating. Tolerating diet. No nausea or vomiting. Vital signs stable. PHYSICAL EXAM: VITAL SIGNS: Reviewed GENERAL: Well-developed in no acute distress. HEENT: No sclera icterus. Extraocular movements grossly intact. Moist buccal mucosa. Head is atraumatic, normocephalic. Hears conversational speech. No nasal drainage. NECK: Supple without lymphadenopathy. CHEST: Non-labored respirations and equal bilateral excursions. CARDIOVASCULAR: Regular rate with regular rhythm. Palpable 2+ radial pulses. ABDOMEN: Soft. Nondistended. Nontender. Drainage catheter noted with small amount of drainage. MUSCULOSKELETAL: No clubbing or cyanosis. NEUROLOGIC: No focal or lateralizing signs. Cranial nerves II through XII grossly intact. PSYCH: Appropriate affect. Alert and oriented to person, place and time. SKIN: Well perfused. Good skin turgor. ASSESSMENT: 1. Intra-abdominal abscess 2. History of complicated appendicitis 3. Hyponatremia, present on admission 4. Elevated LFTs, present on admission PLAN: -Advance diet -Await culture results -Continue antibiotics per Dr. Harris -Timing of discharge to be determined by infectious disease recommendations regarding culture results and antibiotic regimen at discharge -Patient reports decreased oral intake for the last 3 weeks. He is requesting to speak with a dietitian regarding his diet. Consult placed. Nurse practitioner note has been reviewed by physician. Signing provider agrees with the documented findings, assessment, and plan of care. Objective - Vital Signs Vital signs: Vital Signs Temp 97.8 F 10/17/19 07:00 Pulse 92 10/17/19 08:00 Resp 18 10/17/19 08:00 BP 146/83 10/17/19 07:00 Pulse Ox 99 10/17/19 07:00 Intake & Output 10/16/19 10/17/19 10/17/19 18:59 06:59 18:59 Intake Total 625 625 Output Total 10 30 Balance 625 615 -30 Intake: Intake, IV Titration 625 Amount Piperacillin-Tazobactam 3 100 .375 gm In Sodium Chloride 0.9% 100 ml @ 25 mls/hr IVPB Q8HR [facility] Rx# :[id number] Sodium Chloride 0.9% 1, 525 000 ml @ 75 mls/hr IV . [id number] [facility] Rx#:[id number] Oral 625 Output: Drainage 10 30 Abdomen 10 30 Other: Voiding Method Toilet Toilet - Labs CBC & Chem 7: 10/17/19 06:52 10/17/19 06:52 Labs: Abnormal Lab Results - Last 24 Hours (Table) 10/17/19 10/17/19 Range/Units 06:52 06:52 RBC 3.33 L (4.30-5.90) m/uL Hgb 9.8 L (13.0-17.5) gm/dL Hct 30.7 L (39.0-53.0) % Sodium 129 L (137-145) mmol/L Glucose 73 L (74-99) mg/dL Calcium 8.0 L (8.4-10.2) mg/dL Microbiology - Last 24 Hours (Table) 10/16/19 11:25 Gram Stain - Preliminary Peritoneal Fluid Body Fluid Culture - Preliminary Gram Neg Bacilli 10/15/19 05:48 Blood Culture - Preliminary Blood No Growth after 48 hours 10/16/19 11:25 Anaerobic Culture - Preliminary Peritoneal Fluid <Maya Branch N - Last Filed: 10/17/19 13:03> Subjective As above. Patient described care plan that includes results from growth of cultures and tailoring any need for IV versus oral antibiotics. Hospitalization pending infectious disease guidance and possible discharge. Patient made aware that due to re-admission, antibiotic management may be adjusted and needed for discharge pending ID recommendations. Objective - Vital Signs Vital signs: Vital Signs Temp 97.8 F 10/17/19 07:00 Pulse 92 10/17/19 08:00 Resp 18 10/17/19 08:00 BP 146/83 10/17/19 07:00 Pulse Ox 99 10/17/19 07:00 Intake & Output 10/16/19 10/17/19 10/17/19 18:59 06:59 18:59 Intake Total 625 625 Output Total 10 30 Balance 625 615 -30 Weight 80.649 kg Intake: Intake, IV Titration 625 Amount Piperacillin-Tazobactam 3 100 .375 gm In Sodium Chloride 0.9% 100 ml @ 25 mls/hr IVPB Q8HR [facility] Rx# :[id number] Sodium Chloride 0.9% 1, 525 000 ml @ 75 mls/hr IV . [id number] [facility] Rx#:[id number] Oral 625 Output: Drainage 10 30 Abdomen 10 30 Other: Voiding Method Toilet Toilet - Labs CBC & Chem 7: 10/17/19 06:52 10/17/19 06:52 Labs: Abnormal Lab Results - Last 24 Hours (Table) 10/17/19 10/17/19 Range/Units 06:52 06:52 RBC 3.33 L (4.30-5.90) m/uL Hgb 9.8 L (13.0-17.5) gm/dL Hct 30.7 L (39.0-53.0) % Sodium 129 L (137-145) mmol/L Glucose 73 L (74-99) mg/dL Calcium 8.0 L (8.4-10.2) mg/dL Microbiology - Last 24 Hours (Table) 10/16/19 11:25 Gram Stain - Preliminary Peritoneal Fluid Body Fluid Culture - Preliminary Gram Neg Bacilli 10/15/19 05:48 Blood Culture - Preliminary Blood No Growth after 48 hours 10/16/19 11:25 Anaerobic Culture - Preliminary Peritoneal Fluid Assessment and Plan (1) Intra-abdominal abscess Current Visit: Yes Status: Acute Code(s): K65.1 - PERITONEAL ABSCESS SNOMED Code(s): 58788861 (2) Intra-abdominal abscess post-procedure Current Visit: Yes Status: Acute Code(s): T81.43XA - INFCT FOL A PROCEDURE, ORGAN AND SPACE SURGICAL SITE, INIT SNOMED Code(s): 1372646 (3) S/P appendectomy Current Visit: Yes Status: Acute Code(s): Z90.49 - ACQUIRED ABSENCE OF OTHER SPECIFIED PARTS OF DIGESTIVE TRACT SNOMED Code(s): 792857900 (4) Hyponatremia Current Visit: Yes Status: Acute Code(s): E87.1 - HYPO-OSMOLALITY AND HYPONATREMIA SNOMED Code(s): 04194274 (5) Elevated LFTs Current Visit: Yes Status: Acute Code(s): R79.89 - OTHER SPECIFIED ABNORMAL FINDINGS OF BLOOD CHEMISTRY SNOMED Code(s): 627735238
[2019-10-17 11:19] VITALS: BMI 24.7
--- NOTE | 2019-10-17 13:00 | P.PN ---
Progress Note - Text Progress Note Date: 10/17/19 Attempted to call patient's , per request at [phone] at 12:59 pm. Phone kept ringing beyond 6 rings.
--- NOTE | 2019-10-17 15:46 | P.PN ---
Subjective Progress Note Date: 10/17/19 73-year-old male with a past medical history of coronary disease, admitted a few days ago with abdominal pain found to be secondary to multiple intra-abdominal abscesses. Patient was recently hospitalized from 09/25 through 09/29 secondary to a ruptured appendix and peritonitis most likely resulted in the current abdominal abscesses. He underwent a CT-guided drainage on 10/16/2019 and placement of a drain which currently holds a small amount of dark blood. Pulmonary cultures from the aspirated fluid showed gram-negative bacilli, patient has been on IV Zosyn the last few days, he has been afebrile with a stable, abdominal pain has improved significantly since the CT guided drainage yesterday. Otherwise the patient has been improving on a daily basis, he feels significantly better today, denies any nausea or vomiting, tolerating regular diet, no bowel movements yet, but is passing gas, abdominal pain has been close to 0 seconds yesterday Objective - Vital Signs Vital signs: Vital Signs Temp 97.8 F 10/17/19 07:00 Pulse 92 10/17/19 08:00 Resp 18 10/17/19 08:00 BP 146/83 10/17/19 07:00 Pulse Ox 99 10/17/19 07:00 Intake & Output 10/16/19 10/17/19 10/17/19 18:59 06:59 18:59 Intake Total 625 625 525 Output Total 10 30 Balance 625 615 495 Weight 80.649 kg Intake: Intake, IV Titration 625 525 Amount Piperacillin-Tazobactam 3 100 .375 gm In Sodium Chloride 0.9% 100 ml @ 25 mls/hr IVPB Q8HR [facility] Rx# :[id number] Sodium Chloride 0.9% 1, 525 525 000 ml @ 75 mls/hr IV . [id number] [facility] Rx#:[id number] Oral 625 Output: Drainage 10 30 Abdomen 10 30 Other: Voiding Method Toilet Toilet - Exam General: In no acute distress, alert and oriented to person, place, sitting up in bed comfortably Derm: warm, dry Head: atraumatic, normocephalic Eyes: Pupils equal round reactive to light, Mouth: no lip lesion, mucus membranes moist Cardiovascular: S1S2 reg, no murmur Lungs: CTA bilateral, no rhonchi, no rales , no accessory muscle use Abdominal: soft, nontender, ISAI drain in place with small amount of dark blood Ext: no gross muscle atrophy, no edema Neuro: CN II-XI grossly intact, no focal neuro deficits Psych: Alert, oriented, appropriate affect - Labs CBC & Chem 7: 10/17/19 06:52 10/17/19 06:52 Labs: Abnormal Lab Results - Last 24 Hours (Table) 10/17/19 10/17/19 Range/Units 06:52 06:52 RBC 3.33 L (4.30-5.90) m/uL Hgb 9.8 L (13.0-17.5) gm/dL Hct 30.7 L (39.0-53.0) % Sodium 129 L (137-145) mmol/L Glucose 73 L (74-99) mg/dL Calcium 8.0 L (8.4-10.2) mg/dL Microbiology - Last 24 Hours (Table) 10/16/19 11:25 Gram Stain - Preliminary Peritoneal Fluid Body Fluid Culture - Preliminary Gram Neg Bacilli 10/15/19 05:48 Blood Culture - Preliminary Blood No Growth after 48 hours 10/16/19 11:25 Anaerobic Culture - Preliminary Peritoneal Fluid Assessment and Plan Assessment: #Intra-abdominal abscess -Secondary to recent ruptured appendicitis and peritonitis -Status post CT-guided drainage on 10/16/2019 -Preliminary cultures from the aspirated fluid showed gram-negative bacilli - Continue current antibiotics, adjust as the sensitivities and cultures are finalized # Anemia -Secondary to acute blood loss related to recent surgical procedure -Hemoglobin stable, no indication for transfusion at this time -Continue iron supplementation # Euvolemic Hyponatremia -Possibly secondary to SIADH -Discontinue IV fluids once oral intake is improved # Transaminitis -Possibly related to peritonitis and appendicitis -Continue to monitor # Hypertension -Controlled on Cozaar # Due to prophylaxis SCDs
[2019-10-17] MEDS: LOSARTAN 25 MG TAB PO SCH (21:01)
[2019-10-17] MEDS: MELATONIN 5 MG TABLET PO PRN (21:01)
--- NOTE | 2019-10-17 23:45 | PN ---
PROGRESS NOTE DATE OF SERVICE: 10/17/2019 REASON FOR FOLLOWUP: Abdominal abscess/hematoma. INTERVAL HISTORY: The patient is currently afebrile. The patient has been breathing comfortably. Patient denies having any chest pain or any cough. Abdominal pain has improved. The drainage is mostly blood and no diarrhea. Tolerating his diet. PHYSICAL EXAMINATION: Blood pressure 147/84 with a pulse of 74, temperature of 98.9. He is 98% on room air. General description is an elderly male lying in bed in no distress. RESPIRATORY SYSTEM: Unlabored breathing, clear to auscultation anteriorly. HEART: S1, S2. Regular rate and rhythm. ABDOMEN: Soft, no tenderness. LABS: Hemoglobin 9.8, white count 8.3, BUN of 14, creatinine 0.82. The peritoneal fluid culture showing a gram-negative bacilli. DIAGNOSTIC IMPRESSION AND PLAN: Patient with infected abdominal hematoma, status post drainage, culture with gram- negative bacilli. The patient is covered with Zosyn. Will wait for the culture to finalize to determine his discharge antibiotics and monitor his clinical course closely. MMODL / IJN: [id number] /
[2019-10-18] MEDS: KETOROLAC 30 MG/ML 1 ML VIAL IVP SCH ×4 (03:25→21:54)
[2019-10-18] MEDS: ZINC SULFATE 220 MG CAP PO SCH (08:33)
[2019-10-18] MEDS: PIPERACILLIN-TAZOBACTAM 3.375 GM in SODIUM CHLORIDE 0.9% 100 ML IVPB SCH (08:33)
[2019-10-18] MEDS: PANTOPRAZOLE 40 MG TABLET PO SCH (08:33)
[2019-10-18] MEDS ORDERED: MAGNESIUM HYDROXIDE 2,400 MG/10 ML CUP PO ONE (08:48)
--- NOTE | 2019-10-18 13:36 | P.PN ---
<Leesa Burris Sindi - Last Filed: 10/18/19 13:34> Subjective Progress Note Date: 10/18/19 CHIEF COMPLAINT: intra-abdominal abscess HISTORY OF PRESENT ILLNESS: Patient is s/p drainage catheter tube insertion by interventional radiology. Patient with small amount of drainage in bag. Pain is tolerable. Tolerating diet. No nausea or vomiting. Patient complains of constipation. Vital signs stable. PHYSICAL EXAM: VITAL SIGNS: Reviewed GENERAL: Well-developed in no acute distress. HEENT: No sclera icterus. Extraocular movements grossly intact. Moist buccal mucosa. Head is atraumatic, normocephalic. Hears conversational speech. No nasal drainage. NECK: Supple without lymphadenopathy. CHEST: Non-labored respirations and equal bilateral excursions. CARDIOVASCULAR: Regular rate with regular rhythm. Palpable 2+ radial pulses. ABDOMEN: Soft. Nondistended. Nontender. Drainage catheter noted with small amount of drainage. MUSCULOSKELETAL: No clubbing or cyanosis. NEUROLOGIC: No focal or lateralizing signs. Cranial nerves II through XII grossly intact. PSYCH: Appropriate affect. Alert and oriented to person, place and time. SKIN: Well perfused. Good skin turgor. ASSESSMENT: 1. Intra-abdominal abscess 2. History of complicated appendicitis 3. Hyponatremia, present on admission 4. Elevated LFTs, present on admission PLAN: -Continue current diet -Milk of magnesia x 1 for constipation -Await culture results -Continue antibiotics per Dr. Harris -Discharge home when cultures are finalized and antibiotic regimen is finalized Nurse practitioner note has been reviewed by physician. Signing provider agrees with the documented findings, assessment, and plan of care. Objective - Vital Signs Vital signs: Vital Signs Temp 98.1 F 10/18/19 07:00 Pulse 64 10/18/19 07:00 Resp 18 10/18/19 07:00 BP 125/70 10/18/19 07:00 Pulse Ox 98 10/18/19 07:00 Intake & Output 10/17/19 10/18/19 10/18/19 18:59 06:59 18:59 Intake Total 525 250 Output Total 30 50 Balance 495 200 Weight 80.649 kg Intake: Intake, IV Titration 525 Amount Sodium Chloride 0.9% 1, 525 000 ml @ 75 mls/hr IV . [id number] [facility] Rx#:[id number] Oral 250 Output: Drainage 30 50 Abdomen 30 50 Other: Voiding Method Toilet # Voids 2 - Labs CBC & Chem 7: 10/17/19 06:52 10/17/19 06:52 Labs: Microbiology - Last 24 Hours (Table) 10/16/19 11:25 Gram Stain - Final Peritoneal Fluid Body Fluid Culture - Final Escherichia coli 10/15/19 05:48 Blood Culture - Preliminary Blood No Growth after 72 hours <Maya Branch - Last Filed: 10/18/19 19:35> Subjective Patient is reexamined this evening. Cultures are now back with resultant multiple drug resistance including to ampicillin, gentamicin, tetracycline, Bactrim as well as mild resistance to Unasyn, Ancef and tobramycin. Patient's antibiotic has been switched to ceftriaxone. He denies any abdominal pain. Tolerating diet. He is having bowel movements and passing flatus. Antibiotic management at this time pending infectious disease recommendations including PICC line with IV antibiotics upon discharge if needed. Care plan also reviewed with patient. Patient confirms that he talk with his several times a day with updates of his care. All questions were addressed and answered. Patient verbalized understanding of his care plan. Objective - Vital Signs Vital signs: Vital Signs Temp 97.7 F 10/18/19 15:00 Pulse 85 10/18/19 15:00 Resp 18 10/18/19 15:00 BP 147/77 10/18/19 15:00 Pulse Ox 99 10/18/19 15:00 Intake & Output 10/18/19 10/18/19 10/19/19 06:59 18:59 06:59 Intake Total 250 Output Total 50 Balance 200 Intake: Oral 250 Output: Drainage 50 Abdomen 50 Other: # Voids 2 3 # Bowel Movements 1 - Labs CBC & Chem 7: 10/17/19 06:52 10/17/19 06:52 Labs: Microbiology - Last 24 Hours (Table) 10/16/19 11:25 Gram Stain - Final Peritoneal Fluid Body Fluid Culture - Final Escherichia coli 10/15/19 05:48 Blood Culture - Preliminary Blood No Growth after 72 hours Assessment and Plan (1) Intra-abdominal abscess Current Visit: Yes Status: Acute Code(s): K65.1 - PERITONEAL ABSCESS SNOMED Code(s): 12185359 (2) Intra-abdominal abscess post-procedure Current Visit: Yes Status: Acute Code(s): T81.43XA - INFCT FOL A PROCEDURE, ORGAN AND SPACE SURGICAL SITE, INIT SNOMED Code(s): 1467916 (3) S/P appendectomy Current Visit: Yes Status: Acute Code(s): Z90.49 - ACQUIRED ABSENCE OF OTHER SPECIFIED PARTS OF DIGESTIVE TRACT SNOMED Code(s): 895372641 (4) Hyponatremia Current Visit: Yes Status: Acute Code(s): E87.1 - HYPO-OSMOLALITY AND HYPONATREMIA SNOMED Code(s): 76777659 (5) Elevated LFTs Current Visit: Yes Status: Acute Code(s): R79.89 - OTHER SPECIFIED ABNORMAL FINDINGS OF BLOOD CHEMISTRY SNOMED Code(s): 899383896
--- NOTE | 2019-10-18 14:13 | P.PN ---
Subjective Progress Note Date: 10/18/[address]-guided drainage of abdominal abscess yesterday, pain has improved significantly since then. He has been afebrile and hemodynamically stable, he is tolerating regular diet and had a bowel movement for the first time this admission today. A drain was placed at the site of the abscess, is approximately 50 mL of brown fluid which has changed color from dark red yesterday. Fluid cultures come back E. coli, he had been on IV Zosyn which was changed to ceftriaxone today. Overall the patient continues to improve on a daily basis and has no other complaints or symptoms Objective - Vital Signs Vital signs: Vital Signs Temp 98.1 F 10/18/19 07:00 Pulse 64 10/18/19 07:00 Resp 18 10/18/19 07:00 BP 125/70 10/18/19 07:00 Pulse Ox 98 10/18/19 07:00 Intake & Output 10/17/19 10/18/19 10/18/19 18:59 06:59 18:59 Intake Total 525 250 Output Total 30 50 Balance 495 200 Weight 80.649 kg Intake: Intake, IV Titration 525 Amount Sodium Chloride 0.9% 1, 525 000 ml @ 75 mls/hr IV . [id number] [facility] Rx#:[id number] Oral 250 Output: Drainage 30 50 Abdomen 30 50 Other: Voiding Method Toilet # Voids 2 - Exam General: In no acute distress, alert and oriented to person, place, sitting up in bed comfortably Derm: warm, dry Head: atraumatic, normocephalic Eyes: Pupils equal round reactive to light, Mouth: no lip lesion, mucus membranes moist Cardiovascular: S1S2 reg, no murmur Lungs: CTA bilateral, no rhonchi, no rales , no accessory muscle use Abdominal: soft, nontender, ISAI drain in place with approximately 50 mL of brown fluid Ext: no gross muscle atrophy, no edema Neuro: CN II-XI grossly intact, no focal neuro deficits Psych: Alert, oriented, appropriate affect - Labs CBC & Chem 7: 10/17/19 06:52 10/17/19 06:52 Labs: Microbiology - Last 24 Hours (Table) 10/16/19 11:25 Gram Stain - Final Peritoneal Fluid Body Fluid Culture - Final Escherichia coli 10/15/19 05:48 Blood Culture - Preliminary Blood No Growth after 72 hours Assessment and Plan Assessment: #Intra-abdominal abscess -Secondary to recent ruptured appendicitis and peritonitis -Status post CT-guided drainage on 10/16/2019 -Cultures show E. coli, Zosyn discontinued and changed to ceftriaxone # Anemia -Secondary to acute blood loss related to recent surgical procedure -Hemoglobin stable, no indication for transfusion at this time -Continue iron supplementation # Euvolemic Hyponatremia -Possibly secondary to SIADH -Discontinue IV fluids once oral intake is improved # Transaminitis -Possibly related to peritonitis and appendicitis -Continue to monitor # Hypertension -Controlled on Cozaar # Due to prophylaxis SCDs Discharge planning: -Potential discharge home in the next 24-48 hours, will need infectious disease input regarding duration of antibiotic therapy
[2019-10-18] MEDS: SODIUM CHLORIDE 0.9% 1,000 ML IV SCH (15:49)
[2019-10-18] MEDS: metroNIDAZOLE 500 MG TAB PO SCH ×2 (15:52→22:03)
[2019-10-18 19:55] VITALS: RESP 16
[2019-10-18] MEDS ORDERED: traZODone HCL 50 MG TAB PO SCH (21:00)
[2019-10-18] MEDS: LOSARTAN 25 MG TAB PO SCH (22:03)
[2019-10-19] MEDS: KETOROLAC 30 MG/ML 1 ML VIAL IVP SCH ×3 (00:14→11:49)
--- NOTE | 2019-10-19 02:30 | PN ---
PROGRESS NOTE DATE OF SERVICE: 10/18/2019 REASON FOR FOLLOW UP: Abdominal infected hematoma. INTERVAL HISTORY: The patient is currently afebrile, has been breathing comfortably. Patient denies having any chest pain or cough. No nausea, vomiting. Abdominal pain has improved. No diarrhea. PHYSICAL EXAMINATION: Blood pressure 139/65 with a pulse of 74, temperature 98.9, he is 99% on room air. General description is an elderly male up in the bed in no distress. Respiratory system: Unlabored breathing, clear to auscultation anteriorly. Heart S1, S2. Regular rate and rhythm. Abdomen soft, no tenderness. LABS: No new labs have been obtained today. Abdominal culture showing E coli and other cultures currently pending. DIAGNOSTIC IMPRESSION AND PLAN: Patient with infected abdominal hematoma, status post drainage catheter with chocolate colored fluid. Culture with E coli. Antibiotic adjusted to Rocephin and Flagyl added with a plan to finish therapy with oral Cipro and Flagyl for at least 2 weeks and close outpatient followup. MMODL / IJN: [id number] /
[2019-10-19] MEDS: SODIUM CHLORIDE 0.9% 1,000 ML IV SCH (04:31)
[2019-10-19 07:36] VITALS: BP 113/67; PULSE 75; TEMP 97.5
[2019-10-19] MEDS: ZINC SULFATE 220 MG CAP PO SCH (07:36)
[2019-10-19] MEDS: PANTOPRAZOLE 40 MG TABLET PO SCH (07:36)
[2019-10-19] MEDS: metroNIDAZOLE 500 MG TAB PO SCH (07:36)
[2019-10-19 09:09] LABS: Basophils % (A) 0 %; Eosinophils # (A) 0.1 k/uL (0-0.7); Eosinophils % (A) 2 %; HCT 34.9 % (39.0-53.0); HGB 11.2 gm/dL (13.0-17.5); Hypochromasia Slight; Lymphocytes % (A) 17 %; MCH 30.3 pg (25.0-35.0); MCHC 32.1 g/dL (31.0-37.0); MCV 94.3 fL (80.0-100.0); Mean Platelet Volume 6.3; Monocytes # (A) 0.3 k/uL (0-1.0); Monocytes % (A) 6 %; Neutrophils # (A) 4.2 k/uL (1.3-7.7); Neutrophils % (A) 73 %; Platelet Count 421 k/uL (150-450); RDW 13.6 % (11.5-15.5); WBC 5.7 k/uL (3.8-10.6)
[2019-10-19 09:57] LABS: ALT 59 U/L (4-49); AST 44 U/L (17-59); African American GFR (CKD) >90 (>60 ml/min/1.73 sqM); Albumin 2.6 g/dL (3.5-5.0); Alkaline Phosphatase 289 U/L (38-126); Anion Gap 10 mmol/L; Blood Urea Nitrogen 10 mg/dL (9-20); Calcium 8.2 mg/dL (8.4-10.2); Carbon Dioxide 21 mmol/L (22-30); Chloride 104 mmol/L (98-107); Glucose 154 mg/dL (74-99); Non-African American GFR(CKD) >90 (>60 ml/min/1.73 sqM); Potassium 4.3 mmol/L (3.5-5.1); Sodium 135 mmol/L (137-145); Total Bilirubin 0.3 mg/dL (0.2-1.3); Total Protein 5.4 g/dL (6.3-8.2)
--- NOTE | 2019-10-19 10:36 | P.DS ---
<Leesa Burris - Last Filed: 10/19/19 10:18> Providers Expected date of discharge: 10/19/19 Hospital Course: The patient is a 73-year-old male who presents 3 weeks following complicated appendectomy secondary to necrosis of the appendix. He had a drain placed at the time of his index operation on 09/26/2019. He was in the hospital 4 days then discharged with his ISAI drain. He had also been seen by infectious disease team at that time. He was transitioned to oral medications for antibiotics including Augmentin. He had his drain removed at his provider's office within the last 2 weeks. He reports in the last 1 week, he had increased epigastric abdominal pain. He has been taking Advil including Tylenol to control his pain. As of yesterday, his pain became moderate to severe with cramping and increased weakness and fatigue. He presented to the emergency room with worsening sym ptoms including abdominal cramping and pain. Additional studies including CT of the abdomen and pelvis is consistent with multiple intra-abdominal abscesses, hence his admission. Patient underwent placement of abdominal drainage catheter by interventional radiology on 10/16/2019. Cultures from abdominal drainage are positive for e. coli. Infectious disease followed patient during hospitalization and recommends oral antibiotics in the from of cipro and flagyl for 2 weeks at discharge. The patients pain has resolved. He is tolerating diet. Having bowel movements. Vital signs are stable. He was deemed stable for discharge home today per Dr. Branch. Please see EMR for further hospital course details Discharge diagnosis 1. Intra-abdominal abscess 2. History of complicated appendicitis 3. Hyponatremia, present on admission 4. Elevated LFTs, present on admission Nurse practitioner note has been reviewed by physician. Signing provider agrees with the documented findings, assessment, and plan of care. Patient Condition at Discharge: Stable Plan - Discharge Summary New Discharge Prescriptions: New Ciprofloxacin HCl [Cipro] 500 mg PO Q12HR 3 Days #28 tab metroNIDAZOLE [Flagyl] 500 mg PO Q8HR #42 tab Continue Losartan [Cozaar] 25 mg PO HS [place]-3 Fatty Acids/Fish Oil [Fish Oil 1,000 mg Softgel] 1 cap PO Q48H Aspirin EC [Ecotrin Low Dose] 81 mg PO Q48H Ubidecarenone [Co Q-10] 100 mg PO Q48H Potassium Gluconate 99 mg PO Q48H Magnesium 200 mg PO Q48H [place] 500 mg PO Q48H Ascorbic Acid [Vitamin C] 500 mg PO Q48H Discharge Medication List Aspirin EC [Ecotrin Low Dose] 81 mg PO Q48H 09/26/19 [History] Losartan [Cozaar] 25 mg PO HS 09/26/19 [History] Magnesium 200 mg PO Q48H 09/26/19 [History] [place]-3 Fatty Acids/Fish Oil [Fish Oil 1,000 mg Softgel] 1 cap PO Q48H 09/26/19 [History] Potassium Gluconate 99 mg PO Q48H 09/26/19 [History] Ubidecarenone [Co Q-10] 100 mg PO Q48H 09/26/19 [History] Ascorbic Acid [Vitamin C] 500 mg PO Q48H 10/15/19 [History] Saw [place] 500 mg PO Q48H 10/15/19 [History] Ciprofloxacin HCl [Cipro] 500 mg PO Q12HR 3 Days #28 tab 10/19/19 [Rx] metroNIDAZOLE [Flagyl] 500 mg PO Q8HR #42 tab 10/19/19 [Rx] Follow up Appointment(s)/Referral(s): Maya Branch MD [STAFF PHYSICIAN] - 10/31/19 11:00 am Reji Marino MD [Primary Care Provider] - 10/25/19 10:00 am Annette Harris MD [STAFF PHYSICIAN] - 10/31/19 10:00 am Activity/Diet/Wound Care/Special Instructions: drain care per interventional radiology instructions Discharge Disposition: HOME WITH HOME HEALTH SERVICES <Maya Branch - Last Filed: 10/19/19 14:15> Providers Date of admission: 10/15/19 05:41 Attending physician: Maya Branch Consults: 10/15/19 05:40 Consult Physician Urgent Consulting Provider: Amadou Woo Consult Reason/Comments: abd pain, abd abscesses, hx appendectomy Do you want consulting provider notified?: Yes 10/15/19 14:51 Consult Physician Urgent Consulting Provider: Annette Harris Consult Reason/Comments: abcsess Do you want consulting provider notified?: Yes Primary care physician: Reji Marino MD - Discharge Diagnosis(es) (1) Intra-abdominal abscess Current Visit: Yes Status: Acute (2) Intra-abdominal abscess post-procedure Current Visit: Yes Status: Acute (3) S/P appendectomy Current Visit: Yes Status: Acute (4) Hyponatremia Current Visit: Yes Status: Acute (5) Elevated LFTs Current Visit: Yes Status: Acute
--- NOTE | 2019-10-19 15:27 | PN ---
PROGRESS NOTE DATE OF SERVICE: 10/19/2019 REASON FOR FOLLOWUP: Infected abdominal hematoma. INTERVAL HISTORY: The patient is currently afebrile. The patient has been breathing comfortably. The patient denies having any chest pain or shortness of breath or cough. Abdominal pain has improved, no diarrhea. PHYSICAL EXAMINATION: Blood pressure 113/67 with a pulse of 75, temperature 97.5. He is 97% on room air. General description is an elderly male, up in the room in no distress. RESPIRATORY SYSTEM: Unlabored breathing, clear to auscultation anteriorly. HEART: S1, S2. Regular rate and rhythm. ABDOMEN: Soft, drainage has a minimal amount of unclear fluid. LABS: Hemoglobin 11.2, white count 5.7, BUN of 10, creatinine 0.77. The abdominal culture showing E coli and anaerobic Gram-negative bacilli. DIAGNOSTIC IMPRESSION AND PLAN: Patient with infected abdominal hematoma, status post CT-guided drainage. With overall E coli being sensitive to oral Cipro. Recommend Cipro 500 mg b.i.d., now with 500 mg 3 times a day for 2 weeks. Ideally, the patient should have a repeat CAT scan before antibiotics are discontinued to make sure abscess or infected hematoma is completely resolved. His questions and concerns were answered. MMODL / IJN: [id number] /
== END 2019-10-19 14:26 | disposition home health service (06) | DRG 862 ==
LOC: EC 03:02 → 4SSUR 05:41
PROVIDERS: ADMIT Surgery Plastic and Reconstructive Surgery; ATTEND Surgery Plastic and Reconstructive Surgery
PROC: 0W9G30Z Drainage of Peritoneal Cavity with Drainage Device, Percutaneous Approach (ICD-10-PCS; principal; 2019-10-16)
DX: T81.42XA Infection following a procedure, deep incisional surgical site, initial encounter (principal); K65.1 Peritoneal abscess; E22.2 Syndrome of inappropriate secretion of antidiuretic hormone; D62 Acute posthemorrhagic anemia; I10 Essential (primary) hypertension; E78.5 Hyperlipidemia, unspecified; I25.10 Atherosclerotic heart disease of native coronary artery without angina pectoris; M19.90 Unspecified osteoarthritis, unspecified site; R79.89 Other specified abnormal findings of blood chemistry; N40.0 Benign prostatic hyperplasia without lower urinary tract symptoms; Z11.59 Encounter for screening for other viral diseases; I25.2 Old myocardial infarction; Z79.82 Long term (current) use of aspirin; Z79.899 Other long term (current) drug therapy; Z88.5 Allergy status to narcotic agent; Z90.49 Acquired absence of other specified parts of digestive tract; Z90.89 Acquired absence of other organs; Z98.890 Other specified postprocedural states
CPT/HCPCS: 36415; 74177; 75989; 80048; 80053; 81001; 83605; 83690; 83735; 83930; 83935; 84100; 84300; 85025; 85027; 85610; 85730; 87040; 87070; 87075; 87077; 87186; 87205; 87635; 88108; 88305; 93005; 96361; 96374; 99285

== ENCOUNTER → 2019-11-03 | Outpatient (CLI) | payer MEDICARE, OTHER ==
[2019-11-03 13:39] LABS: African American GFR (CKD) >90 (>60 ml/min/1.73 sqM); Blood Urea Nitrogen 14 mg/dL (9-20); Non-African American GFR(CKD) 87 (>60 ml/min/1.73 sqM)
--- NOTE | 2019-11-03 15:18 | CT ---
EXAMINATION TYPE: CT abdomen pelvis w con DATE OF EXAM: 11/03/2019 COMPARISON: 11/03/2019 HISTORY: Follow up post appendectomy, generalized abdominal pain post surgery CT DLP: 639.7 mGycm CONTRAST: CT scan of the abdomen and pelvis is performed with Oral Contrast and with IV Contrast, patient injec kenney with 100 mL of Isovue 300. FINDINGS: LUNG BASES-: No visible nodule. No infiltrate. LIVER/GB: No calcified gallstones. No space occupying hepatic lesion. Biliary tree is of normal ca liber. PANCREAS: No inflammation. No distinct mass. SPLEEN: No splenic enlargement. No lesion seen. ADRENALS: No nodule. No thickening. KIDNEYS/BLADDER: No hydronephrosis. No nephrolithiasis. No distinct renal mass. Urinary bladder g rossly unremarkable. BOWEL: Appendectomy changes noted. Previously identified multiple abscesses have resolved in the inte rval. I do not see evidence for a residual abscess at this time. There is persistent mild wall thicke mello of several bowel loops are noted. No evidence for pneumoperitoneum. Normal bowel caliber. GENITAL ORGANS: No gross abnormality. LYMPH NODES: No greater than 1cm abdominal or pelvic lymph nodes are appreciated. AORTA: No significant abnormality. OSSEOUS STRUCTURES: No significant abnormality is seen. OTHER: No significant additional abnormality is seen. IMPRESSION: 1. Appendectomy changes noted. Previously identified multiple abscesses have resolved in the interval . I do not see evidence for a residual abscess at this time. There is persistent mild wall thickening of several bowel loops are noted
== END | disposition home or self-care (01) ==
LOC: RADCTMAIN 12:57
PROVIDERS: ATTEND Internal Medicine Infectious Disease
DX: K63.89 Other specified diseases of intestine (principal); Z98.890 Other specified postprocedural states
CPT/HCPCS: 82565; 84520; 74177; 36415; Q9967